=== PATIENT | female | born 1980 | race Hispanic/Latino ===

== ENCOUNTER 2024-01-26 10:07 | Emergency (ER) | payer MEDICARE ==
[~2024-01-26] VITALS: Ht 152.4 cm; Wt 68.0 kg
[2024-01-26 10:11] VITALS: O2SAT 100
[2024-01-26 10:45] LABS: BILIRUBIN,URINE NEGATIVE (NEGATIVE); GLUCOSE, URINE (UA) NEGATIVE (NEGATIVE); KETONES,URINE 5 mg/dL (NEGATIVE); LEUKOCYTE ESTERASE ,URINE 250 Leu/uL (NEGATIVE); NITRATE,URINE NEGATIVE (NEGATIVE); OCCULT BLOOD,URINE LARGE (NEGATIVE); PROTEIN,URINE 20 mg/dL (NEGATIVE); UROBILINOGEN,URINE 0.2 mg/dL (0.2-1.0)
[2024-01-26 10:46] LABS: ADD UA MICROSCOPIC YES; APPEARANCE,URINE CLOUDY (CLEAR); COLOR,URINE RED (YELLOW)
[2024-01-26 11:01] LABS: BACTERIA,URINE RARE /HPF (None Seen); MUCUS,URINE RARE LPF (None Seen); RBC,URINE TNTC /HPF (0-1); SQUAMOUS EPITHELIAL CELL,UR MOD /HPF (0-2); WBC,URINE TNTC /HPF (0-1)
[2024-01-26 11:20] LABS: BASOPHILS # (AUTO) 0.04 K/uL (0.00-0.20); BASOPHILS % (AUTO) 0.8 % (0.0-5.0); EOSINOPHILS # (AUTO) 0.04 K/uL (0.00-0.70); EOSINOPHILS % (AUTO) 0.8 % (0.0-8.0); HEMATOCRIT 38.2 % (36-48); IMMATURE GRANULOCYTE ABSOLUTE 0.01 K/uL (0-1); LYMPHOCYTES # (AUTO) 1.3 K/uL (1.0-4.8); LYMPHOCYTES % (AUTO) 24.2 % (21.0-51.0); MEAN CORPUSCULAR HEMOGLOBIN 34.1 pg (27.0-33.0); MEAN CORPUSCULAR HGB CONC 34.3 g/dL (32.0-36.0); MEAN CORPUSCULAR VOLUME 99.5 fL (79-99); MONOCYTES # (AUTO) 0.6 K/uL (0.1-1.0); MONOCYTES % (AUTO) 10.4 % (3.0-13.0); NEUTROPHILS # (AUTO) 3.4 K/uL (1.8-7.7); NEUTROPHILS % (AUTO) 63.6 % (40.0-77.0); PLATELET COUNT (AUTO) 152 K/uL (130-400); RED BLOOD CELL COUNT(AUTO) 3.84 MIL/uL (4.00-5.50); RED CELL DISTRIBUTION WIDTH 12.4 % (11.0-15.5); WHITE BLOOD COUNT (AUTO) 5.3 K/uL (4.8-10.8)
[2024-01-26 11:23] LABS: CREATININE 0.9 mg/dL (0.5-1.0); POTASSIUM 3.6 mmol/L (3.5-5.1)
[2024-01-26 11:29] LABS: ALBUMIN 3.1 g/dL (3.5-5.0); BILIRUBIN,TOTAL 0.6 mg/dL (0.2-1.0); TOTAL PROTEIN, SERUM 7.5 g/dL (6.0-8.3)
[2024-01-26] MEDS: ONDANSETRON 4MG INJ IVP ONE (13:40)
[2024-01-26] MEDS: MORPHINE 2 MG SYG IVP ONE (13:41)
[2024-01-26 15:15] VITALS: BP 91/55; PULSE 53; RESP 16
[2024-01-26] MEDS ORDERED: SULF1TAB42 PO (15:30)
[2024-01-26] MEDS ORDERED: ONDA22I PO (15:31)
[2024-01-26] MEDS: CEFTRIAXONE 1G VIAL IVPB ONE (15:44)
== END 2024-01-26 16:14 | disposition home or self-care (01) ==
LOC: EDH 10:07
DX: N39.0 Urinary tract infection, site not specified (principal)
CPT/HCPCS: 99285; 74176; 96365; 96375; 80053; 85025; 87088; 81001; 81025; 36415; 93005; J2270; J0696; J2405

== ENCOUNTER 2025-04-23 20:15 | Emergency (ER) | payer MEDICARE ==
[~2025-04-23] VITALS: Ht 160 cm; Wt 68.0 kg
[~2025-04-23 20:15] MED LIST: ONDA22I PO; SULF1TAB42 PO
--- NOTE | 2025-04-23 20:23 | ERN ---
ED Note History of Present Illness Stated Complaint: HEADACHE, DIZZINESS Chief Complaint: Headache Time Seen by MD: 20:20 Dictation: PATIENT IS A 44-YEAR-OLD FEMALE COMING IN WITH VIA EMS WITH COMPLAINTS OF HAVING A FRONTAL HEADACHE ONSET 1 HOUR PRIOR TO ARRIVAL. NO FEVER NO CHILLS NO NAUSEA VOMITING. SHE STATES SHE IS MILDLY DIZZY. SHE DOES HAVE DOWN SYNDROME HOWEVER IS PROVIDING AND APPROPRIATE HISTORY FOR HEADACHE. NIH IS 0. SHE CONFIRMS THAT NOTHING HAS BEEN GIVEN TO HER PRIOR TO ARRIVAL FOR PAIN, EMS STATED THE SAME. PATIENT DOES HAVE FAMILY IN ROUTE. Allergies: Coded Allergies: No Known Drug Allergies (Unverified Allergy, Unknown, 01/26/24) Home Meds Active Scripts Ondansetron HCl (Zofran) 4 Mg/2 Ml Inj, 4 MG PO BID for 7 Days, #14 TAB Prov:DUNG NAIDU 01/26/24 Sulfamethoxazole/Trimethoprim (Bactrim Ds Tablet) 800 Mg-160 Mg Tablet, 1 TAB PO BID for 7 Days, #14 TAB 0 Refills Prov:DUNG NAIDU 01/26/24 Past Medical History Past Medical History: Other Additional Past Medical Hx: DOWN SYNDROME Surgical History: Unknown RN Note Reviewed/Agreed w/PFSH: Yes Review of System Dictation CONSTITUTIONAL: NEGATIVE EXCEPT FOR HPI HEAD/FACE: NEGATIVE EXCEPT FOR HPI EENT: NEGATIVE EXCEPT FOR HPI RESPIRATORY: NEGATIVE EXCEPT FOR HPI GASTROINTESTINAL/ABDOMINAL: NEGATIVE EXCEPT FOR HPI GENITOURINARY: NEGATIVE EXCEPT FOR HPI MUSCULOSKELETAL: NEGATIVE EXCEPT FOR HPI INTEGUMENTARY: NEGATIVE EXCEPT FOR HPI NEUROLOGICAL/PSYCH: NEGATIVE EXCEPT FOR HPI GENERALIZED HEADACHE HEMATOLOGIC/LYMPHATIC: NEGATIVE EXCEPT FOR HPI ALL SYSTEMS NEGATIVE, EXCEPT NOTED ABOVE. 13 POINT REVIEW OF SYSTEMS ASSESSED AND ALL NEGATIVE EXCEPT FOR ABOVE. Initial Vital Sign VS Vital Signs Date Time Temp Pulse Resp B/P (MAP) Pulse Ox O2 Delivery O2 Flow Rate FiO2 04/23/25 20:15 98.2 61 16 123/74 98 Room Air* 0 21 Physical Exam Dictation VITAL SIGNS REVIEWED GENERAL APPEARANCE: ALERT, ORIENTED X 3, MILD ACUTE DISTRESS, WELL DEVELOPED, NOURISHED. HEAD AND FACE: NON-TRAUMATIC. NO SINUS TENDERNESS EYES: PERRL, PINK CONJUNCTIVAS, EYELID NO TRAUMA, ANTERIOR CHAMBER WITH ARCUS SENILIS. EARS: PINNAS INTACT AND NO SIGNS OF TRAUMA OR ERYTHEMA EAR CANALS CLEAR AND NO DISCHARGE TM NO ERYTHEMA NOSE: NO DISCHARGE, NO BLEEDING. OROPHARYNX: MOUTH NORMAL, TONGUE PINK, PHARYNX CLEAR,NO ERYTHEMA, TONSILS NO EXUDATES, NO ABSCESSES NOTED, MUCOUS MEMBRANE MOIST NECK: SUPPLE, NON-TENDER, NO THYROMEGALY, NO MASSES, NO JVD, NO BRUITS BREAST:DEFERRED CHEST:NO TENDERNESS, NO CREPITUS, NO PARADOXICAL MOVEMENT, NO RETRACTIONS LUNGS:CLEAR, WELL-VENTILATED, SYMMETRIC, NO RALES, NO WHEEZING, NO RHONCHI, NO STRIDOR, GOOD BREATH SOUNDS BILATERALLY HEART: REGULAR RATE, REGULAR RHYTHM, NO MURMUR, NO GALLOPS VASCULAR: NO PERIPHERAL EDEMA, ABDOMEN: SOFT, POSITIVE BOWEL SOUNDS, NONDISTENDED, NO GUARDING, NONTENDER, NO REBOUND, NO MASSES NO HEPATOMEGALY, NO SPLENOMEGALY, NO SWIFT'S SIGN, NO HERNIAS. RECTAL: DEFERRED GENITAL: DEFERRED NEUROLOGICAL: NORMAL SPEECH, MOTOR FUNCTION INTACT, SENSORY FUNCTION INTACT MUSCULOSKELETAL: NECK NONTENDER, FULL RANGE OF MOTION, BACK NONTENDER, FULL RANGE OF MOTION, EXTREMITIES: NONTENDER, FULL RANGE OF MOTION SKIN: COLOR PINK, DRY, NO TURGOR, NO RASH, NO LACERATIONS, NO ABRASIONS, NO CONTUSIONS. LYMPHATIC: DEFERRED Results (Laboratory/Radiology) Laboratory/Radiology Laboratory Tests Test 04/23/25 20:34 White Blood Count 5.2 K/uL (4.8-10.8) Red Blood Count 3.94 MIL/uL (4.00-5.50) L Hemoglobin 13.4 g/dL (12.0-16.0) Hematocrit 38.8 % (36-48) Mean Corpuscular Volume 98.5 fL (79-99) Mean Corpuscular Hemoglobin 34.0 pg (27.0-33.0) H Mean Corpuscular Hemoglobin Concent 34.5 g/dL (32.0-36.0) Red Cell Distribution Width 12.8 % (11.0-15.5) Platelet Count 173 K/uL (130-400) Mean Platelet Volume 12.0 fL (7.5-10.5) H Immature Granulocyte % (Auto) 0.2 % (0-1) Neutrophils (%) (Auto) 47.5 % (40.0-77.0) Lymphocytes (%) (Auto) 38.0 % (21.0-51.0) Monocytes (%) (Auto) 11.1 % (3.0-13.0) Eosinophils (%) (Auto) 2.1 % (0.0-8.0) Basophils (%) (Auto) 1.1 % (0.0-5.0) Neutrophils # (Auto) 2.5 K/uL (1.8-7.7) Lymphocytes # (Auto) 2.0 K/uL (1.0-4.8) Monocytes # (Auto) 0.6 K/uL (0.1-1.0) Eosinophils # (Auto) 0.11 K/uL (0.00-0.70) Basophils # (Auto) 0.06 K/uL (0.00-0.20) Absolute Immature Granulocyte (auto 0.01 K/uL (0-1) Nucleated Red Blood Cells 0.0 % (0.0-0.19) Sodium Level 138 mmol/L (136-145) Potassium Level 3.4 mmol/L (3.5-5.1) L Chloride Level 103 mmol/L (101-111) Carbon Dioxide Level 28 mmol/L (21-32) Blood Urea Nitrogen 6 mg/dL (7-18) L Creatinine 0.9 mg/dL (0.5-1.0) Glomerular Filtration Rate Calc 81 mL/min (>90) Random Glucose 95 mg/dL (70-105) Total Calcium 8.4 mg/dL (8.5-10.1) L Labs Reviewed?: Yes ED Course ED Course Orders Procedure Category Date Status Time Cbc With Differential LAB 04/23/25 Complete 20:22 Basic Metabolic Panel LAB 04/23/25 Complete 20:22 Acetaminophen 500mg PHA 04/23/25 Complete Tab (Tylenol 500mg T 20:30 Potassium Bicarb/Cit PHA 04/23/25 In Process Ac 25meq (K-Lyte Ta 21:30 Current Medications Medications (Trade) Dose Ordered Sig/Reji Route PRN Reason Start Time Stop Time Status Last Admin Dose Admin Acetaminophen (TYLenol 500MG TAB) 1,000 mg ONCE ONCE PO 04/23/25 20:30 04/23/25 20:31 DC 04/23/25 20:40 Potassium Bicarbonate (K-Lyte Tablet Eff 25 Meq Tablet.eff) 25 meq ONCE ONCE PO 04/23/25 21:30 04/23/25 21:31 Vital Signs Date Time Temp Pulse Resp B/P (MAP) Pulse Ox O2 Delivery O2 Flow Rate FiO2 04/23/25 20:15 98.2 61 16 123/74 98 Room Air 0 04/23/25 20:15 98.2 61 16 123/74 98 Room Air* 0 2114/PATIENT STATES PAIN MARKEDLY IMPROVED AFTER TYLENOL. DISCHARGED HOME AFTER REPLACING POTASSIUM SISTER AT BEDSIDE AND AWARE OF FINDINGS AND AGREES WITH DISCHARGE PATIENT REMAINS NEUROLOGICALLY INTACT AT BASELINE PER HER SISTER. Medical Decision Making MDM MEDICAL DISCHARGE MAKING BASED ON CBC CHEMISTRY AND TREATMENT FOR AN ACUTE HEADACHE. PATIENT GIVEN TYLENOL FOR [id number] PAIN CBC DEMONSTRATES M NO ACUTE FINDINGS BNP DEMONSTRATES MILD DEHYDRATION AND HYPOKALEMIA POTASSIUM REPLACE DISCHARGED HOME WITH HER SISTER DX & DISP Disposition: Discharge Departure Impression: Primary Impression: Acute headache Additional Impressions: Hypokalemia, Mild dehydration Condition: Stable Additional Instructions: FOLLOW-UP WITH PRIMARY CARE PROVIDER IN 1 TO 2 DAYS. TAKE MEDICATIONS DIRECTED HERE IN THE EMERGENCY ROOM. OKAY TO CONTINUE HOME MEDICATIONS UNLESS OTHERWISE DISCUSSED DURING YOUR VISIT IN THE EMERGENCY ROOM TODAY. RETURN TO YOUR NEAREST EMERGENCY ROOM IF SYMPTOMS WORSEN OR IF THERE IS NO IMPROVEMENT. CALL 911 IF YOU NEED IMMEDIATE ASSISTANCE. TAKE TYLENOL OR MOTRIN [id number] NEEDED AND IF NO CONTRAINDICATIONS ARE PRESENT. INCREASE ORAL HYDRATION. A WOUND CULTURE OR URINE CULTURE WAS ORDERED HERE IN THE EMERGENCY ROOM DEPARTMENT PLEASE FOLLOW-UP WITH PRIMARY CARE PROVIDER AND ADVISE THEM TO GET REPEAT PORTS FROM OUR FACILITY. IF YOU HAD ANY SAVANA WRAP/SPLINTS THAT WERE APPLIED HERE, PLEASE DO NOT REMOVE THEM UNTIL YOU SEE YOUR PRIMARY CARE OR SPECIALTY. TYLENOL OR MOTRIN [id number] NEEDED FOR PAIN. INCREASE FLUID INTAKE. FOLLOW UP WITH YOUR PRIMARY CARE DOCTOR IN THE NEXT 1-2 DAYS. Referrals: СВЕТЛАНА LEDEZMA (PCP) Time of Disposition: 21:17 I have reviewed the case, and I agree with, Diagnosis and Plan KALLI WHITING NP Apr 23, 2025 20:23
[2025-04-23 20:41] LABS: IMMATURE GRANULOCYTE ABSOLUTE 0.01 K/uL (0-1); NUCLEATED RED BLOOD CELLS 0.0 % (0.0-0.19); PLATELET COUNT (AUTO) 173 K/uL (130-400); RED BLOOD CELL COUNT(AUTO) 3.94 MIL/uL (4.00-5.50); RED CELL DISTRIBUTION WIDTH 12.8 % (11.0-15.5); WHITE BLOOD COUNT (AUTO) 5.2 K/uL (4.8-10.8)
[2025-04-23 20:48] LABS: CREATININE 0.9 mg/dL (0.5-1.0); GLOMERULAR FILTR. RATE CALC 81.0 mL/min (>90); GLUCOSE,RANDOM 95.0 mg/dL (70-105); SODIUM SERUM 138.0 mmol/L (136-145); UREA NITROGEN, BLOOD 6.0 mg/dL (7-18)
[2025-04-23 21:25] VITALS: BP 120/76; PULSE 64; RESP 17; TEMP 98.4; O2SAT 99
== END 2025-04-23 21:30 | disposition home or self-care (01) ==
LOC: EDH 20:15
DX: R51.9 Headache, unspecified (principal); E87.6 Hypokalemia; E86.0 Dehydration; Z79.899 Other long term (current) drug therapy
CPT/HCPCS: 36415; 80048; 85025; 99283

== ENCOUNTER 2025-06-04 14:31 | Emergency (ER) | payer MEDICARE ==
[~2025-06-04] VITALS: Ht 160 cm; Wt 79.4 kg
[2025-06-04 15:16] LABS: IMMATURE GRANULOCYTE ABSOLUTE 0.01 K/uL (0-1); NUCLEATED RED BLOOD CELLS 0.0 % (0.0-0.19); PLATELET COUNT (AUTO) 161 K/uL (130-400); RED BLOOD CELL COUNT(AUTO) 3.84 MIL/uL (4.00-5.50); RED CELL DISTRIBUTION WIDTH 13.1 % (11.0-15.5); WHITE BLOOD COUNT (AUTO) 6.0 K/uL (4.8-10.8)
[2025-06-04 15:26] LABS: CREATININE 0.8 mg/dL (0.5-1.0); GLOMERULAR FILTR. RATE CALC 94.0 mL/min (>90); GLUCOSE,RANDOM 106.0 mg/dL (70-105); SODIUM SERUM 137.0 mmol/L (136-145); UREA NITROGEN, BLOOD 7.0 mg/dL (7-18)
[2025-06-04 15:33] LABS: CREATINE KINASE, TOTAL 43.0 U/L (21-232)
--- NOTE | 2025-06-04 15:57 | HMCIMG ---
CHEST 1VW REASON: cp COMPARISON: None. FINDINGS: Single view of the chest was obtained. Lungs are clear. Heart size is normal. There is no pulmonary vascular congestion. Mediastinum and bony thorax appear unremarkable. IMPRESSION: 1. Normal single view chest x-ray.
--- NOTE | 2025-06-04 16:03 | ERN ---
General Chief Complaint: Chest Pain Stated Complaint: CP Time Seen by MD: 14:33 Time Seen by Midlevel: 14:33 Source: patient History of Present Illness Initial Comments 44-year-old female with a past medical history of Down syndrome being brought in by provider in EMS for evaluation of right-sided chest pain that started earlier today. Patient denies any other symptoms. Denies any trauma to the area. Full dose of aspirin was administered prior to arrival. No other past history is reported Allergies: Coded Allergies: No Known Drug Allergies (Unverified Allergy, Unknown, 01/26/24) Home Meds Active Scripts Ondansetron HCl (Zofran) 4 Mg/2 Ml Inj, 4 MG PO BID for 7 Days, #14 TAB Prov:DUNG NAIDU 01/26/24 Sulfamethoxazole/Trimethoprim (Bactrim Ds Tablet) 800 Mg-160 Mg Tablet, 1 TAB PO BID for 7 Days, #14 TAB 0 Refills Prov:DNUG NAIDU 01/26/24 Past Medical History Past Medical History: Other Medical History Other: DOWN SYNDROME Past Surgical History: None ROS Dictation CONSTITUTIONAL: Negative except for HPI HEAD/FACE: Negative except for HPI EENT: Negative except for HPI RESPIRATORY: Negative except for HPI GASTROINTESTINAL/ABDOMINAL: Negative except for HPI GENITOURINARY: Negative except for HPI MUSCULOSKELETAL: Negative except for HPI INTEGUMENTARY: Negative except for HPI NEUROLOGICAL/PSYCH: Negative except for HPI HEMATOLOGIC/LYMPHATIC: Negative except for HPI All Systems Negative, Except as noted above. 13 point review of systems assessed and all negative except for above. Physical Exam Physical Exam Dictation Vital Signs reviewed General Appearance: Alert, oriented x 3, no acute distress, well developed, nourished. Head and Face: non-traumatic. Eyes: PERRL, pink conjunctivas, eyelid no trauma, anterior chamber with arcus senilis. Ears: Pinnas intact and no signs of trauma or erythema ear canals clear and no discharge TM no erythema Nose: No discharge, no bleeding. Oropharynx: Mouth normal, tongue pink, pharynx clear,no erythema, tonsils no exudates, no abscesses noted, mucous membrane moist Neck: Supple, non-tender, no thyromegaly, no masses, no JVD, no bruits Breast:Deferred Chest:No tenderness, no crepitus, no paradoxical movement, no retractions Lungs:Clear, well-ventilated, symmetric, no rales, no wheezing, no rhonchi, no stridor, good breath sounds bilaterally Heart: Regular rate, regular rhythm, no murmur, no gallops Vascular: no peripheral edema, Abdomen: Soft, positive bowel sounds, nondistended, no guarding, nontender, no rebound, no masses no hepatomegaly, no splenomegaly, no Vela's sign, no hernias. Rectal: Deferred Genital: Deferred Neurological: Normal speech, motor function intact, sensory function intact Musculoskeletal: Neck nontender, full range of motion, back nontender, full range of motion, Extremities: nontender, full range of motion Skin: Color pink, dry, no turgor, no rash, no lacerations, no abrasions, no contusions. Lymphatic: Deferred Results Laboratory and Microbiology Lab and Micro Result Laboratory Tests Test 06/04/25 15:10 White Blood Count 6.0 K/uL (4.8-10.8) Red Blood Count 3.84 MIL/uL (4.00-5.50) L Hemoglobin 13.2 g/dL (12.0-16.0) Hematocrit 38.5 % (36-48) Mean Corpuscular Volume 100.3 fL (79-99) H Mean Corpuscular Hemoglobin 34.4 pg (27.0-33.0) H Mean Corpuscular Hemoglobin Concent 34.3 g/dL (32.0-36.0) Red Cell Distribution Width 13.1 % (11.0-15.5) Platelet Count 161 K/uL (130-400) Mean Platelet Volume 11.7 fL (7.5-10.5) H Immature Granulocyte % (Auto) 0.2 % (0-1) Neutrophils (%) (Auto) 42.8 % (40.0-77.0) Lymphocytes (%) (Auto) 44.0 % (21.0-51.0) Monocytes (%) (Auto) 10.3 % (3.0-13.0) Eosinophils (%) (Auto) 1.5 % (0.0-8.0) Basophils (%) (Auto) 1.2 % (0.0-5.0) Neutrophils # (Auto) 2.6 K/uL (1.8-7.7) Lymphocytes # (Auto) 2.6 K/uL (1.0-4.8) Monocytes # (Auto) 0.6 K/uL (0.1-1.0) Eosinophils # (Auto) 0.09 K/uL (0.00-0.70) Basophils # (Auto) 0.07 K/uL (0.00-0.20) Absolute Immature Granulocyte (auto 0.01 K/uL (0-1) Nucleated Red Blood Cells 0.0 % (0.0-0.19) Sodium Level 137 mmol/L (136-145) Potassium Level 3.6 mmol/L (3.5-5.1) Chloride Level 104 mmol/L (101-111) Carbon Dioxide Level 26 mmol/L (21-32) Blood Urea Nitrogen 7 mg/dL (7-18) Creatinine 0.8 mg/dL (0.5-1.0) Glomerular Filtration Rate Calc 94 mL/min (>90) Random Glucose 106 mg/dL (70-105) H Total Calcium 8.3 mg/dL (8.5-10.1) L Magnesium Level 2.10 mg/dL (1.80-2.40) Total Creatine Kinase 43 U/L (21-232) Troponin I High Sensitivity 10 ng/L (4-50) B-Type Natriuretic Peptide 19 pg/mL (0-100) Labs Reviewed?: Yes MDM MDM: 44-year-old female with a past medical history of Down syndrome being brought in by provider in EMS for evaluation of right-sided chest pain that star lyndon earlier today. Patient denies any other symptoms. Denies any trauma to the area. Full dose of aspirin was administered prior to arrival. No other past history is reported On physical examination the patient is in no acute distress. Vital signs are stable. Physical examination is reassuring. Cardiac workup initiated. CBC and chemistries are stable. Troponin is negative. Chest x-ray is normal. Patient has a low heart score in low risk for acute coronary syndrome. We will discharged home with return precautions. Provider at bedside. Differential diagnosis: Acute coronary syndrome, anxiety, noncardiac chest pain There are no social concerns with this patient. Prescription drug management Prescriptions will include: None Medical management and examination interpretation discussions were had by me with other qualified healthcare professionals as indicated for the patient's care. ED Course Orders Procedure Category Date Status Time 12 Lead Ekg Tracing- EKG 06/04/25 Logged Technical 15:00 Cbc With Differential LAB 06/04/25 Complete 15:00 Basic Metabolic Panel LAB 06/04/25 Complete 15:00 B-Type Natriuretic LAB 06/04/25 Complete Peptide 15:00 Creatine Kinase, Total LAB 06/04/25 Complete 15:00 Magnesium LAB 06/04/25 Complete 15:00 Troponin I High LAB 06/04/25 Complete Sensitivity 15:00 Chest 1vw RAD 06/04/25 Resulted 15:00 Vital Signs Date Time Temp Pulse Resp B/P (MAP) Pulse Ox O2 Delivery O2 Flow Rate FiO2 06/04/25 14:32 98.2 64 16 118/76 98 Room Air 0 HEART Score Response (Comments) Value History: Low suspicion (0) 0 EKG: Normal 0 Age: < 45yrs (0) 0 Risk Factors: No known risk factors (0) 0 Initial Troponin: Normal limit (0) 0 HEART Score Risk: Low Risk for MACE (1-3) Total 0 DX & DISP Disposition: Discharge Departure Impression: Primary Impression: Non-cardiac chest pain Condition: Stable Additional Instructions: Your evaluation today include a blood work, EKG, and a chest x-ray. All results were normal and there were no signs of heart attack, pneumonia, blood clot, or other emergency conditions at this time. Based on your heart score and test results, you were consider low risk for serious cardiac event at this time. Rest as needed and avoid strenuous activity until cleared by your primary care doctor. Stay well hydrated and maintain a healthy diet. Follow up with your primary care doctor in two three days for repeat evaluation. Referrals: СВЕТЛАНА LEDEZMA (PCP) Time of Disposition: 16:03 I have reviewed the case, and I agree with, Diagnosis and Plan I performed the substantive portion of the visit. I have reviewed and personally made and approve the management plan that is documented in the note by myself or the MELBA. I acknowledge for responsibility for the patient's management plan. DUNG NAIDU Jun 04, 2025 16:03
[2025-06-04 17:00] VITALS: BP 123/66; PULSE 60; RESP 16; TEMP 98.2; O2SAT 98
--- NOTE | 2025-06-04 20:16 | EKG ---
[facility] Test Date: 2025-06-04 Test Time: 14:32:08 Pat Name: SANDRA WILLS Department: [facility] Room: Gender: F Director [place] Sales: [id number] : 1980 Requested By: DUNG NAIDU Order Number: [id number] Reading MD: Harshad Emanuel Measurements Intervals Severy Rate: 60 P: 44 HI: 137 QRS: 56 QRSD: 91 T: 31 QT: 434 QTc: 435 Interpretive Statements Sinus rhythm Low voltage, precordial leads Compared to ECG 01/26/2024 12:16:36 No significant changes Electronically Signed On 06-07-2025 21:29:49 CDT by Harshad Emanuel Please click the below link to view image of tracing.
== END 2025-06-04 17:31 | disposition home or self-care (01) ==
LOC: EDH 14:31
DX: R07.89 Other chest pain (principal); Q90.9 Down syndrome, unspecified
CPT/HCPCS: 36415; 71045; 80048; 82550; 83735; 83880; 84484; 85025; 93005; 99285

== ENCOUNTER 2025-06-19 15:42 | Emergency (ER) | payer MEDICARE ==
[~2025-06-19] VITALS: Ht 162.6 cm; Wt 72.1 kg
--- NOTE | 2025-06-19 15:57 | NUR ---
PENDING TEST RESULTS FOR CT EXAM.
[2025-06-19 16:03] LABS: IMMATURE GRANULOCYTE ABSOLUTE 0.01 K/uL (0-1); NUCLEATED RED BLOOD CELLS 0.0 % (0.0-0.19); PLATELET COUNT (AUTO) 199 K/uL (130-400); RED BLOOD CELL COUNT(AUTO) 3.85 MIL/uL (4.00-5.50); RED CELL DISTRIBUTION WIDTH 13.2 % (11.0-15.5); WHITE BLOOD COUNT (AUTO) 7.3 K/uL (4.8-10.8)
[2025-06-19 16:19] LABS: CREATININE 0.8 mg/dL (0.5-1.0); GLOMERULAR FILTR. RATE CALC 94.0 mL/min (>90); GLUCOSE,RANDOM 93.0 mg/dL (70-105); SODIUM SERUM 139.0 mmol/L (136-145); UREA NITROGEN, BLOOD 7.0 mg/dL (7-18)
[2025-06-19 16:24] LABS: ASPARTATE AMINOTRANSFERASE 41.0 U/L (10-37); TOTAL PROTEIN, SERUM 7.2 g/dL (6.0-8.3)
--- NOTE | 2025-06-19 16:25 | NUR ---
TRANSPORTED TO CT BY BANK [facility]NER.
--- NOTE | 2025-06-19 16:43 | HMCIMG ---
EXAM: CT Abdomen and Pelvis Without IV contrast CLINICAL HISTORY: diffuse abdominal pain, bilateral flank pain TECHNIQUE: Axial computed tomography images of the abdomen and pelvis without intravenous contrast. CONTRAST: No IV contrast. COMPARISON: None provided. FINDINGS: LUNG BASES: The lung bases appear clear. No pleural effusions are seen. LIVER: Unremarkable. GALLBLADDER AND BILE DUCTS: The gallbladder appears within normal limits. No radioopaque gallstones are seen. No biliary ductal dilatation is evident. PANCREAS: Unremarkable. SPLEEN: Unremarkable. ADRENAL GLANDS: Unremarkable. KIDNEYS, URETERS, AND BLADDER: Small bilateral obstructing renal collecting system stones, measuring 2 to 3 mm. No ureteral stones. No hydronephrosis. STOMACH AND BOWEL: No bowel obstruction or inflammation. APPENDIX: Normal appendix. PERITONEUM: No free fluid. No free air. LYMPH NODES: No lymphadenopathy is evident. REPRODUCTIVE: 2 cm right adnexal cyst. Thickened endometrium in the lower uterine segment. VASCULATURE: No evidence of abdominal aortic aneurysm. BONES: No aggressive appearing osseous lesion. No acute osseous pathology evident. IMPRESSION: Small bilateral obstructing renal collecting system stones, measuring 2 to 3 mm. No ureteral stones. No hydronephrosis. No bowel obstruction or inflammation. Normal appendix. 2 cm right adnexal cyst. Thickened endometrium in the lower uterine segment. If indicated, further evaluation with ultrasound can be performed. /[place]
--- NOTE | 2025-06-19 16:45 | NUR ---
RETURNED FROM CT.
[2025-06-19] MEDS: 0.9% NACL 500ML IV.SOLN 500 ML IV ONE (17:41)
[2025-06-19] MEDS: 0.9%NACL 1000ML 1,000 ML IV SCH (18:00)
--- NOTE | 2025-06-19 18:00 | ERN ---
ED Note History of Present Illness Stated Complaint: ABDOMINAL PAIN Chief Complaint: Abdominal Pain Time Seen by MD: 15:46 Time Seen by Midlevel: 15:47 Dictation: Ms. Wills is a 44 year old female with history of Down syndrome transported via EMS to the emergency department for evaluation of flank pain. She reports fatigue, general weakness, nausea, diarrhea, headache, and bilateral flank pain onset today at 1400. There is no report of fever, chills, shortness of breath, cough, chest pain, palpitations, edema, vomiting, hematemesis, constipation, melena, hematochezia, hematuria, headache, dizziness, or focal weakness/paresth esia Allergies: Coded Allergies: No Known Drug Allergies (Unverified Allergy, Unknown, 01/26/24) Emergency Care DIGITAL CIRCUIT DESIGNER: None Home Meds Active Scripts Ondansetron HCl (Zofran) 4 Mg/2 Ml Inj, 4 MG PO BID for 7 Days, #14 TAB Prov:DUNG NAIDU 01/26/24 Sulfamethoxazole/Trimethoprim (Bactrim Ds Tablet) 800 Mg-160 Mg Tablet, 1 TAB PO BID for 7 Days, #14 TAB 0 Refills Prov:DUNG NAIDU 01/26/24 Past Medical History Past Medical History: No Pertinent History Additional Past Medical Hx: DOWNE'S SYNDROME Surgical History: None PSYCH History: no pertinent psych hx Social History: Negative History: Not Applicable RN Note Reviewed/Agreed w/PFSH: Yes Review of System Dictation REVIEW OF SYSTEMS: CONSTITUTIONAL: Patient denies fevers, chills, sweats and weight changes. Reports fatigue and general weakness. EYES: Patient denies any visual symptoms. EARS, NOSE, AND THROAT: No difficulties with hearing. No symptoms of rhinitis or sore throat. CARDIOVASCULAR: Patient denies chest pains, palpitations, orthopnea and paroxysmal nocturnal dyspnea. RESPIRATORY: No dyspnea on exertion, no wheezing or cough. GI: No nausea, vomiting, constipation, hematochezia or melena. Reports diffuse abdominal pain and diarrhea. : No urinary hesitancy or dribbling. No nocturia or urinary frequency. No abnormal urethral discharge. Denies hematuria. Reports bilateral flank pain. MUSCULOSKELETAL: No myalgias or arthralgias. NEUROLOGIC: No chronic headaches, no seizures. Patient denies numbness, tingling or weakness. Reports headache. PSYCHIATRIC: Patient denies problems with mood disturbance. No problems with anxiety. ENDOCRINE: No excessive urination or excessive thirst. DERMATOLOGIC: Patient denies any rashes or skin changes. Initial Vital Sign VS Vital Signs Date Time Temp Pulse Resp B/P (MAP) Pulse Ox O2 Delivery O2 Flow Rate FiO2 06/19/25 15:44 98.2 67 18 108/73 99 Room Air 06/19/25 15:54 0 21 Physical Exam Dictation Vital signs: Reviewed. Afebrile Constitutional: Uncomfortable restless Head/Face: Normocephalic, atraumatic. Eyes: Periorbital areas with no swelling, redness, or edema. Lids and lashes are normal. Conjunctival injection is absent. Sclera anicteric. Pupils equal, round, reactive to light. ENT: Pinnas intact and no signs of trauma or erythema. Ear canals clear and no discharge. TMs no erythema. No nasal discharge or bleeding noted. Oropharynx with no exudate, redness, swelling, masses, exudates, or evidence of obstruction. Uvula midline. Mucous membranes moist. Neck: Trachea midline, no masses palpated, and no cervical lymphadenopathy. No swelling. Supple, full range of motion. Chest/Axilla: No tenderness, no crepitus, no paradoxical movement, no retractions. Cardiovascular: Regular rate, regular rhythm, no murmur, no gallops. Symmetric pulses. No peripheral edema. monitoring coordinator reflects a sinus rhythm. Normotensive; 108/73 Respiratory: Respirations even and unlabored. Lung sounds clear; no wheezes, rales or rhonchi. Room air SpO2 99%. Gastrointestinal: Inspection is normal. No distention is appreciated. Bowel sounds are normal. No mass or organomegaly . There is no tenderness. No rebound. No rigidity. No voluntary or involuntary guarding. No Vela's sign. : Has not yet voided. No suprapubic tenderness. Positive tenderness bilateral flanks. Neurological: Normal speech, gross motor function intact, gross sensory function intact. No focal weakness/Paresthesia. Musculoskeletal/Extremities: All extremities have full range of motion, no pain or tenderness on palpation. Symmetric pulses. Integumentary: Intact. Skin is normal color, warm and dry. Cap refill less than 3 seconds. Results (Laboratory/Radiology) Laboratory/Radiology Laboratory Tests Test 06/19/25 15:53 06/19/25 18:38 White Blood Count 7.3 K/uL (4.8-10.8) Red Blood Count 3.85 MIL/uL (4.00-5.50) L Hemoglobin 13.2 g/dL (12.0-16.0) Hematocrit 38.0 % (36-48) Mean Corpuscular Volume 98.7 fL (79-99) Mean Corpuscular Hemoglobin 34.3 pg (27.0-33.0) H Mean Corpuscular Hemoglobin Concent 34.7 g/dL (32.0-36.0) Red Cell Distribution Width 13.2 % (11.0-15.5) Platelet Count 199 K/uL (130-400) Mean Platelet Volume 11.2 fL (7.5-10.5) H Immature Granulocyte % (Auto) 0.1 % (0-1) Neutrophils (%) (Auto) 57.8 % (40.0-77.0) Lymphocytes (%) (Auto) 31.0 % (21.0-51.0) Monocytes (%) (Auto) 9.4 % (3.0-13.0) Eosinophils (%) (Auto) 0.7 % (0.0-8.0) Basophils (%) (Auto) 1.0 % (0.0-5.0) Neutrophils # (Auto) 4.2 K/uL (1.8-7.7) Lymphocytes # (Auto) 2.3 K/uL (1.0-4.8) Monocytes # (Auto) 0.7 K/uL (0.1-1.0) Eosinophils # (Auto) 0.05 K/uL (0.00-0.70) Basophils # (Auto) 0.07 K/uL (0.00-0.20) Absolute Immature Granulocyte (auto 0.01 K/uL (0-1) Nucleated Red Blood Cells 0.0 % (0.0-0.19) Sodium Level 139 mmol/L (136-145) Potassium Level 3.6 mmol/L (3.5-5.1) Chloride Level 105 mmol/L (101-111) Carbon Dioxide Level 23 mmol/L (21-32) Blood Urea Nitrogen 7 mg/dL (7-18) Creatinine 0.8 mg/dL (0.5-1.0) Glomerular Filtration Rate Calc 94 mL/min (>90) Random Glucose 93 mg/dL (70-105) Lactic Acid Level 1.2 mmol/L (0.8-2.5) Total Calcium 8.3 mg/dL (8.5-10.1) L Total Bilirubin 0.4 mg/dL (0.2-1.0) Direct Bilirubin 0.1 mg/dL (0.0-0.3) Aspartate Amino Transf (AST/SGOT) 41 U/L (10-37) H Alanine Aminotransferase (ALT/SGPT) 47 U/L (12-78) Alkaline Phosphatase 93 U/L (50-136) Total Protein 7.2 g/dL (6.0-8.3) Albumin 3.0 g/dL (3.5-5.0) L Serum Test, Qualitative NEGATIVE (NEGATIVE) Urine Color YELLOW (YELLOW) Urine Appearance CLEAR (CLEAR) Urine pH 5.0 (5.0-8.0) Urine Specific [place] 1.022 (1.001-1.031) Urine Protein NEGATIVE mg/dL (NEGATIVE) Urine Glucose (UA) NEGATIVE mg/dL (NEGATIVE) Urine Ketones 5 mg/dL (NEGATIVE) H Urine Occult Blood NEGATIVE (NEGATIVE) Urine Nitrate NEGATIVE (NEGATIVE) Urine Bilirubin NEGATIVE mg/dL (NEGATIVE) Urine Urobilinogen 0.2 mg/dL (0.2-1.0) Urine Leukocyte Esterase NEGATIVE Tu/uL Labs Reviewed?: Yes CT Scan Comment: PATIENT: SANDRA WILLS MR#: [id number] : 1980 SEX: F AGE: 44 LOCATION: [facility] ORDER [id number] STATUS: [facility] REPORT#: [id number] SERVICE [id number] REASON: diffuse abdominal pain, bilateral flank pain ORDERING PHYSICIAN: ENRRIQUE SOLORZANO NP PROCEDURE: ABD PEL WO - CT ABDOMEN/PELVIS W/O CONTRAST EXAM: CT Abdomen and Pelvis Without IV contrast CLINICAL HISTORY: diffuse abdominal pain, bilateral flank pain TECHNIQUE: Axial computed tomography images of the abdomen and pelvis without intravenous contrast. CONTRAST: No IV contrast. COMPARISON: None provided. FINDINGS: LUNG BASES: The lung bases appear clear. No pleural effusions are seen. LIVER: Unremarkable. GALLBLADDER AND BILE DUCTS: The gallbladder appears within normal limits. No radioopaque gallstones are seen. No biliary ductal dilatation is evident. PANCREAS: Unremarkable. SPLEEN: Unremarkable. ADRENAL GLANDS: Unremarkable. KIDNEYS, URETERS, AND BLADDER: Small bilateral obstructing renal collecting system stones, measuring 2 to 3 mm. No ureteral stones. No hydronephrosis. STOMACH AND BOWEL: No bowel obstruction or inflammation. APPENDIX: Normal appendix. PERITONEUM: No free fluid. No free air. LYMPH NODES: No lymphadenopathy is evident. REPRODUCTIVE: 2 cm right adnexal cyst. Thickened endometrium in the lower uterine segment. VASCULATURE: No evidence of abdominal aortic aneurysm. BONES: No aggressive appearing osseous lesion. No acute osseous pathology evident. IMPRESSION: Small bilateral obstructing renal collecting system stones, measuring 2 to 3 mm. No ureteral stones. No hydronephrosis. No bowel obstruction or inflammation. Normal appendix. 2 cm right adnexal cyst. Thickened endometrium in the lower uterine segment. If indicated, further evaluation with ultrasound can be performed. /[place] DICTATED BY: JENNIFER MCGEE MD DATE: 06/19/251741 ELECTRONICALLY SIGNED BY: JENNIFER MCGEE MD DATE: 06/19/251741 ED Course ED Course Orders Procedure Category Date Status Time Urinalysis Profile LAB 06/19/25 Complete 15:48 Cbc With Differential LAB 06/19/25 Complete 15:48 Basic Metabolic Panel LAB 06/19/25 Complete 15:48 Hepatic Function Panel LAB 06/19/25 Complete 15:48 Ct Abdomen/Pelvis W/O CT 06/19/25 Resulted Contrast 15:48 0.9% Nacl 500ml PHA 06/19/25 Complete Iv.Soln (Ns 500ml 16:00 Ondansetron 4mg Inj PHA 06/19/25 Complete (Zofran 4mg Inj) 16:00 Hydromorphone 0.5mg PHA 06/19/25 Complete Syg (Dilaudid 0.5mg 16:00 Testing, LAB 06/19/25 Complete Serum Hcg 15:48 Lactic Acid LAB 06/19/25 Complete 15:48 0.9%Nacl 1000ml (Ns PHA 06/19/25 In Process 1000ml) 18:00 Tamsulosin Hcl PHA 06/19/25 Logged (Flomax) 19:00 Ketorolac PHA 06/19/25 Logged Tromethamine 15mg/Ml 19:00 Hydromorphone 0.5mg PHA 06/19/25 Logged Syg (Dilaudid 0.5mg 19:00 Ondansetron 4mg Inj PHA 06/19/25 Logged (Zofran 4mg Inj) 19:00 0.9% Nacl 500ml PHA 06/19/25 Logged Iv.Soln (Ns 500ml 19:00 Current Medications Medications (Trade) Dose Ordered Sig/Reji Route PRN Reason Start Time Stop Time Status Last Admin Dose Admin Hydromorphone HCl (DiLAUDid 0.5MG INJ) 0.5 mg ONCE ONCE IVP 06/19/25 16:00 06/19/25 16:01 DC 06/19/25 17:41 Hydromorphone HCl (DiLAUDid 0.5MG INJ) 0.5 mg ONCE ONCE IVP 06/19/25 19:00 06/19/25 19:01 UNV Ketorolac Tromethamine (toRADol) 15 mg ONCE ONCE IV 06/19/25 19:00 06/19/25 19:01 UNV Ondansetron HCl (zoFRAN 4MG INJ) 4 mg ONCE ONCE IVP 06/19/25 16:00 06/19/25 16:01 DC 06/19/25 17:42 Ondansetron HCl (zoFRAN 4MG INJ) 4 mg ONCE ONCE IVP 06/19/25 19:00 06/19/25 19:01 UNV Sodium Chloride 500 ml @ 0 mls/hr ONCE ONCE IV 06/19/25 16:00 06/19/25 16:01 DC 06/19/25 17:41 Sodium Chloride 500 ml @ 0 mls/hr ONCE ONCE IV 06/19/25 19:00 06/19/25 19:01 UNV Sodium Chloride 1,000 ml @ 0 mls/hr ONCE IV 06/19/25 18:00 06/20/25 17:59 Tamsulosin HCl (FloMAX) 0.4 mg ONCE ONCE PO 06/19/25 19:00 06/19/25 19:01 UNV Vital Signs Date Time Temp Pulse Resp B/P (MAP) Pulse Ox O2 Delivery O2 Flow Rate FiO2 06/19/25 18:00 97.2 71 20 110/58 99 Room Air* 0 21 06/19/25 15:54 98.2 70 14 108/73 99 Room Air* 0 21 06/19/25 15:44 98.2 67 18 108/73 99 Room Air Vital signs remained stable; afebrile and normotensive with room air SpO2 99%. Laboratory findings as noted below. There is no elevation of WBCs. H&H are stable. Ca 8.3, AST 41, and albumin three. HCG was negative. Noncontrast CT scan of the abdomen and pelvis revealed small bilateral obstructing renal collecting system stones measuring 2-3 mm. No ureteral stones. No hydronephrosis. There is no bowel obstruction or inflammation. Normal appen katarina. Incidental finding of a 2 cm right adnexal cyst as well as thickened endometrium in the lower uterine segment. ED she received doses Zofran, Dilaudid, Toradol, Flomax, and NS 1000 mL IV as bolus. These findings were discussed with patient and family. She will follow up with her PCP and [facility]. She may be referred to urologist. Medical Decision Making MDM MDM: Differential diagnosis: UTI, pyelonephritis, kidney stone, appendicitis Rationale: Tests considered and ordered secondary to shared decision making include: Lab, UA, CT Previous outside records reviewed: Old ER visits. Risk of complication and/or morbidity or mortality of patient management: None Medications-Per medication reconciliation Need for hospitalization: Patient does not meet criteria for hospitalization. Need for emergency major/minor surgery: No There are no social concerns with this patient. Prescription drug management: Flomax, ibuprofen, Zofran Prescriptions will include symptomatic care Patient's prior external medical records from other ER visits were reviewed by me as indicated. Prior testing and results from previous visits were reviewed. Prior tests were taken into account with medical decision making and resource utilization, independent historian/historians were used to obtain complete medical history. I independently interpreted the test that were performed, results were reviewed by me and considered findings on radiology if ordered. Medical management and examination interpretation discussions were had by me with other qualified healthcare professionals as indicated for the patient's care. DX & DISP Disposition: Discharge Departure Impression: Primary Impression: Kidney stone Additional Impressions: Mild dehydration, Nausea & vomiting Condition: Stable Scripts Ondansetron (Ondansetron Odt) 4 Mg Tab.rapdis 4 MG PO Q6HPRN PRN for nausea, #15 TAB 0 Refills Prov: ENRRIQUE SOLORZANO SULEMAN 06/19/25 Ibuprofen (Ibuprofen) 600 Mg Tablet 1 TAB PO TID for pain for 10 Days, #30 TAB 0 Refills with food Prov: ENRRIQUE SOLORZANO SULEMAN 06/19/25 Tamsulosin HCl (Flomax) 0.4 Mg Cap.er.24h 0.4 MG PO DAILY, #10 CAPSULE.DR 0 Refills Prov: ENRRIQUE SOLORZANO SULEMAN 06/19/25 Additional Instructions: Re-evaluated today for bilateral flank and abdominal pain your CT scan showed small bilateral kidney stones (2-3 mm) there was no evidence of infection, appendicitis, or bowel obstruction. There was an incidental finding of a thickened endometrium which she should be followed up with with your primary care provider or [facility]. Your pain improved in the emergency room and you are being discharged to home with ibuprofen as needed for pain, Zofran as needed for nausea., and Flomax daily to help pass stones. You will need to drink plenty of fluids to help flush the stones. Avoid sodas and colon which can increase stone wrist. Rest as needed, but daily activity is okay as tolerated. You may use a urine strainer if able to catch stones. Schedule a visit with your primary care provider early next week. Follow up with your [facility] for the uterine findings. You may be referred to urologist. Return to the emergency department if you develop: Fever, chills, or worsening pain. Nausea or vomiting troponin fluid intake. Difficulty urinating or blood clots in the urine. Signs of dehydration (dry mouth, dizziness, or very little urine). Referrals: СВЕТЛАНА LEDEZMA (PCP) Time of Disposition: 19:13 ENRRIQUE SOLORZANO NP Jun 19, 2025 17:59
[2025-06-19 18:49] LABS: APPEARANCE,URINE CLEAR (CLEAR); GLUCOSE, URINE (UA) NEGATIVE (NEGATIVE); LEUKOCYTE ESTERASE ,URINE NEGATIVE Leu/uL (NEGATIVE); NITRATE,URINE NEGATIVE (NEGATIVE); OCCULT BLOOD,URINE NEGATIVE (NEGATIVE)
[2025-06-19 18:55] LABS: ADD UA MICROSCOPIC NO
[2025-06-19] MEDS ORDERED: TAMS-55 PO (19:07)
[2025-06-19] MEDS ORDERED: ONDA-243 PO (19:07)
[2025-06-19] MEDS ORDERED: IBUP-1492 PO (19:07)
--- NOTE | 2025-06-19 19:20 | NUR ---
PT CARE ASSUMED AT THIS TIME
[2025-06-19] MEDS: 0.9% NACL 500ML IV.SOLN 500 ML IV SCH (19:41)
[2025-06-19 19:52] VITALS: BP 110/55; PULSE 69; RESP 15; TEMP 98.2; O2SAT 100
--- NOTE | 2025-06-19 20:03 | NUR ---
STRAINER GIVEN TO PT DIRECTED BY SULEMAN OSUNA
== END 2025-06-19 20:05 | disposition home or self-care (01) ==
LOC: EDH 15:42
DX: N20.0 Calculus of kidney (principal); E86.0 Dehydration; R11.2 Nausea with vomiting, unspecified
CPT/HCPCS: 99285; 74176; 96374; 96375; 80076; 80048; 84703; 85025; 83605; 81003; 36415; 96376; J7040; J2405 ×2; J1171

== ENCOUNTER 2025-06-26 15:08 | Emergency (ER) | payer MEDICARE ==
[~2025-06-26] VITALS: Ht 152.4 cm; Wt 69.9 kg
[~2025-06-26 15:08] MED LIST changes: +IBUP-1492 PO; +ONDA-243 PO; +TAMS-55 PO
--- NOTE | 2025-06-26 15:17 | ERN ---
ED Note History of Present Illness Stated Complaint: ABDOMINAL PAIN Chief Complaint: Abdominal Pain Time Seen by MD: 15:10 Dictation: PATIENT IS A 44-YEAR-OLD FEMALE HERE WITH HISTORY OF DOWN SYNDROME AND COMPLAINING OF EPIGASTRIC PAIN WITH NAUSEA VOMITING ONSET WAS YESTERDAY. NO FEVER NO CHILLS NO CHEST PAIN NO BACK PAIN NO SOB. [place] [facility] [place] [facility] [place] Allergies: Coded Allergies: No Known Drug Allergies (Unverified Allergy, Unknown, 01/26/24) Home Meds Active Scripts Ondansetron (Ondansetron Odt) 4 Mg Tab.rapdis, 4 MG PO Q6HPRN PRN for nausea, #15 TAB 0 Refills Prov:ENRRIQUE SOLORZANO [facility] 06/19/25 Ibuprofen (Ibuprofen) 600 Mg Tablet, 1 TAB PO TID for pain for 10 Days, #30 TAB 0 Refills with food Prov:ENRRIQUE SOLORZANO [facility] 06/19/25 Tamsulosin HCl (Flomax) 0.4 Mg Cap.er.24h, 0.4 MG PO DAILY, #10 CAPSULE.DR 0 Refills Prov:ENRRIQUE SOLORZANO [facility] 06/19/25 Ondansetron HCl (Zofran) 4 Mg/2 Ml Inj, 4 MG PO BID for 7 Days, #14 TAB Prov:DUNG NAIDU [facility] 01/26/24 Sulfamethoxazole/Trimethoprim (Bactrim Ds Tablet) 800 Mg-160 Mg Tablet, 1 TAB PO BID for 7 Days, #14 TAB 0 Refills Prov:DUNG NAIDU 01/26/24 Past Medical History Past Medical History: No Pertinent History Additional Past Medical Hx: DOWNE'S SYNDROME Surgical History: None Social History: Negative History: Not Applicable RN Note Reviewed/Agreed w/PFSH: Yes Review of System Dictation NORMAL ROS CONSTITUTIONAL: NEGATIVE EXCEPT FOR HPI HEAD/FACE: NEGATIVE EXCEPT FOR HPI EENT: NEGATIVE EXCEPT FOR HPI RESPIRATORY: NEGATIVE EXCEPT FOR HPI GASTROINTESTINAL/ABDOMINAL: NEGATIVE EXCEPT FOR HPI EPIGASTRIC PAIN WITH NAUSEA VOMITING GENITOURINARY: NEGATIVE EXCEPT FOR HPI MUSCULOSKELETAL: NEGATIVE EXCEPT FOR HPI INTEGUMENTARY: NEGATIVE EXCEPT FOR HPI NEUROLOGICAL/PSYCH: NEGATIVE EXCEPT FOR HPI HEMATOLOGIC/LYMPHATIC: NEGATIVE EXCEPT FOR HPI ALL SYSTEMS NEGATIVE, EXCEPT NOTED ABOVE. 13 POINT REVIEW OF SYSTEMS ASSESSED AND ALL NEGATIVE EXCEPT FOR ABOVE. Initial Vital Sign VS Vital Signs Date Time Temp Pulse Resp B/P (MAP) Pulse Ox O2 Delivery O2 Flow Rate FiO2 06/26/25 15:10 97.5 66 20 98/72 98 Room Air 06/26/25 15:24 0 21 Physical Exam Dictation VITAL SIGNS REVIEWED GENERAL APPEARANCE: ALERT, ORIENTED X 3, MODERATE ACUTE DISTRESS, WELL DEVELOPED, NOURISHED. HEAD AND FACE: NON-TRAUMATIC. EYES: PERRL, PINK CONJUNCTIVAS, EYELID NO TRAUMA, ANTERIOR CHAMBER WITH ARCUS SENILIS. EARS: PINNAS INTACT AND NO SIGNS OF TRAUMA OR ERYTHEMA EAR CANALS CLEAR AND NO DISCHARGE TM NO ERYTHEMA NOSE: NO DISCHARGE, NO BLEEDING. OROPHARYNX: MOUTH NORMAL, TONGUE PINK, PHARYNX CLEAR,NO ERYTHEMA, TONSILS NO EXUDATES, NO ABSCESSES NOTED, MUCOUS MEMBRANE MOIST NECK: SUPPLE, NON-TENDER, NO THYROMEGALY, NO MASSES, NO JVD, NO BRUITS BREAST:DEFERRED CHEST:NO TENDERNESS, NO CREPITUS, NO PARADOXICAL MOVEMENT, NO RETRACTIONS LUNGS:CLEAR, WELL-VENTILATED, SYMMETRIC, NO RALES, NO WHEEZING, NO RHONCHI, NO STRIDOR, GOOD BREATH SOUNDS BILATERALLY HEART: REGULAR RATE, REGULAR RHYTHM, NO MURMUR, NO GALLOPS VASCULAR: NO PERIPHERAL EDEMA, ABDOMEN: SOFT, POSITIVE BOWEL SOUNDS, NONDISTENDED, NO GUARDING, MODERATE EPIGASTRIC PAIN WITH PALPATION. NEGATIVE SWIFT'S SIGN NEGATIVE MCBURNEY'S POINT PAIN RECTAL: DEFERRED GENITAL: DEFERRED NEUROLOGICAL: NORMAL SPEECH, MOTOR FUNCTION INTACT, SENSORY FUNCTION INTACT MUSCULOSKELETAL: NECK NONTENDER, FULL RANGE OF MOTION, BACK NONTENDER, FULL RANGE OF MOTION, EXTREMITIES: NONTENDER, FULL RANGE OF MOTION SKIN: COLOR PINK, DRY, NO TURGOR, NO RASH, NO LACERATIONS, NO ABRASIONS, NO C ONTUSIONS. LYMPHATIC: DEFERRED Results (Laboratory/Radiology) Laboratory/Radiology Laboratory Tests Test 06/26/25 15:24 06/26/25 16:47 White Blood Count 5.6 K/uL (4.8-10.8) Red Blood Count 3.89 MIL/uL (4.00-5.50) L Hemoglobin 13.4 g/dL (12.0-16.0) Hematocrit 39.5 % (36-48) Mean Corpuscular Volume 101.5 fL (79-99) H Mean Corpuscular Hemoglobin 34.4 pg (27.0-33.0) H Mean Corpuscular Hemoglobin Concent 33.9 g/dL (32.0-36.0) Red Cell Distribution Width 13.2 % (11.0-15.5) Platelet Count 141 K/uL (130-400) Mean Platelet Volume 13.5 fL (7.5-10.5) H Immature Granulocyte % (Auto) 0.4 % (0-1) Neutrophils (%) (Auto) 46.6 % (40.0-77.0) Lymphocytes (%) (Auto) 39.7 % (21.0-51.0) Monocytes (%) (Auto) 10.4 % (3.0-13.0) Eosinophils (%) (Auto) 2.0 % (0.0-8.0) Basophils (%) (Auto) 0.9 % (0.0-5.0) Neutrophils # (Auto) 2.6 K/uL (1.8-7.7) Lymphocytes # (Auto) 2.2 K/uL (1.0-4.8) Monocytes # (Auto) 0.6 K/uL (0.1-1.0) Eosinophils # (Auto) 0.11 K/uL (0.00-0.70) Basophils # (Auto) 0.05 K/uL (0.00-0.20) Absolute Immature Granulocyte (auto 0.02 K/uL (0-1) Nucleated Red Blood Cells 0.0 % (0.0-0.19) Sodium Level 138 mmol/L (136-145) Potassium Level 3.8 mmol/L (3.5-5.1) Chloride Level 104 mmol/L (101-111) Carbon Dioxide Level 27 mmol/L (21-32) Blood Urea Nitrogen 8 mg/dL (7-18) Creatinine 0.9 mg/dL (0.5-1.0) Glomerular Filtration Rate Calc 81 mL/min (>90) Random Glucose 100 mg/dL (70-105) Total Calcium 8.1 mg/dL (8.5-10.1) L Troponin I High Sensitivity 8 ng/L (4-50) Lipase 37 U/L (16-77) Urine Color COLORLESS (YELLOW) Urine Appearance CLEAR (CLEAR) Urine pH 5.5 (5.0-8.0) Urine Specific [place] 1.002 (1.001-1.031) Urine Protein NEGATIVE mg/dL (NEGATIVE) Urine Glucose (UA) NEGATIVE mg/dL (NEGATIVE) Urine Ketones NEGATIVE mg/dL (NEGATIVE) Urine Occult Blood NEGATIVE (NEGATIVE) Urine Nitrate NEGATIVE (NEGATIVE) Urine Bilirubin NEGATIVE mg/dL (NEGATIVE) Urine Urobilinogen 0.2 mg/dL (0.2-1.0) Urine Leukocyte Esterase NEGATIVE Tu/uL Urine HCG, Qualitative NEGATIVE (NEGATIVE) Labs Reviewed?: Yes EKG: (+) NSR EKG Comment: EKG NORMAL SINUS RHYTHM/HEART RATE 62/AXIS NORMAL/NO ECTOPY ED Course ED Course Orders Procedure Category Date Status Time Cbc With Differential LAB 06/26/25 Complete 15:12 Troponin I High LAB 06/26/25 Complete Sensitivity 15:12 ,Urine Test LAB 06/26/25 Complete 15:12 Urinalysis Profile LAB 06/26/25 Complete 15:12 0.9%Nacl 1000ml (Ns PHA 06/26/25 Complete 1000ml) 15:30 Famotidine 20mg Vial PHA 06/26/25 Complete (Pepcid 20mg Vial) 15:30 Lipase LAB 06/26/25 Complete 15:12 Basic Metabolic Panel LAB 06/26/25 Complete 15:12 12 Lead Ekg Tracing- EKG 06/26/25 Logged Technical 16:41 Lidocaine Hcl 2% PHA 06/26/25 Complete Viscous (Lidocaine Hcl 17:00 Mag/Alum/Simeth 30ml PHA 06/26/25 Complete (Maalox Plus 30ml) 17:00 Famotidine 20mg Tab PHA 06/26/25 Complete (Pepcid 20mg Tab) 17:00 Dicyclomine Hcl PHA 06/26/25 Complete (Bentyl 10mg/5ml 17:00 Current Medications Medications (Trade) Dose Ordered Sig/Reji Route PRN Reason Start Time Stop Time Status Last Admin Dose Admin Al Hydroxide/Mg Hydroxide (MAALox PLUS 30ML) 30 ml ONCE ONCE PO 06/26/25 17:00 06/26/25 17:01 DC Dicyclomine HCl (Bentyl 10mg/5ml Syrup) 10 mg ONCE ONCE PO 06/26/25 17:00 06/26/25 17:01 DC Famotidine (Pepcid 20mg Vial) 20 mg ONCE ONCE IV 06/26/25 15:30 06/26/25 16:56 DC 06/26/25 16:40 Famotidine (Pepcid 20mg Tab) 20 mg ONCE ONCE PO 06/26/25 17:00 06/26/25 17:01 DC Lidocaine HCl (Lidocaine HCl 2% Viscous) 10 ml ONCE ONCE PO 06/26/25 17:00 06/26/25 17:01 DC Sodium Chloride 1,000 ml @ 0 mls/hr ONCE ONCE IV 06/26/25 15:30 06/26/25 16:56 DC 06/26/25 16:40 Vital Signs Date Time Temp Pulse Resp B/P (MAP) Pulse Ox O2 Delivery O2 Flow Rate FiO2 06/26/25 15:24 97.5 66 20 98/72 Room Air* 0 21 06/26/25 15:10 97.5 66 20 98/72 98 Room Air 1715/PATIENT STATES PAIN MARKEDLY IMPROVED AFTER GI COCKTAIL AND PEPCID. DISCHARGED HOME WITH A ACUTE GASTRITIS AND WE WILL BE TREATED FOR THAT. BLAND DIET EXPLAINED TO PATIENT WITH WATER FOR FLUIDS ONLY Medical Decision Making MDM MDM: DIFFERENTIAL DIAGNOSIS: ACS/AMI/ELECTROLYTE IMBALANCE/DEHYDRATION/PANCREATITIS/GASTRITIS/CHOLELITHIASIS/ RATIONALE: TESTS CONSIDERED AND ORDERED SECONDARY TO SHARED DECISION MAKING INCLUDE: LABS/EKG PREVIOUS OUTSIDE RECORDS REVIEWED: OLD ER VISITS. RISK OF COMPLICATION AND/OR MORBIDITY OR MORTALITY OF PATIENT MANAGEMENT: NONE MEDICATIONS-PER MEDICATION RECONCILIATION NEED FOR HOSPITALIZATION: PATIENT DOES NOT MEET CRITERIA FOR HOSPITALIZATION. NONE NEED FOR EMERGENCY MAJOR/MINOR SURGERY: NO THERE ARE NO SOCIAL CONCERNS WITH THIS PATIENT. PRESCRIPTION DRUG MANAGEMENT OMEPRAZOLE/CARAFATE PRESCRIPTIONS WILL INCLUDE SYMPTOMATIC CARE PATIENT'S PRIOR EXTERNAL MEDICAL RECORDS FROM OTHER ER VISITS WERE REVIEWED BY ME INDICATED. PRIOR TESTING AND RESULTS FROM PREVIOUS VISITS WERE REVIEWED. PRIOR TESTS WERE TAKEN INTO ACCOUNT WITH MEDICAL DECISION MAKING AND RESOURCE UTILIZATION, INDEPENDENT HISTORIAN/HISTORIANS WERE USED TO OBTAIN COMPLETE MEDICAL HISTORY. I INDEPENDENTLY INTERPRETED THE TEST THAT WERE PERFORMED, RESULTS WERE REVIEWED BY ME AND CONSIDERED FINDINGS ON RADIOLOGY IF ORDERED. MEDICAL MANAGEMENT AND EXAMINATION INTERPRETATION DISCUSSIONS WERE HAD BY ME WITH OTHER QUALIFIED HEALTHCARE PROFESSIONALS INDICATED FOR THE PATIENT'S CARE. DX & DISP Disposition: Discharge Departure Impression: Primary Impression: Acute gastritis Additional Impression: Hypocalcemia Condition: Stable Scripts Sucralfate (Carafate) 1 Gram Tablet 1 GM PO ACHS for 10 Days, #40 TAB Prov: KALLI WHITING FOUNDER PRESIDENT AND CEO 06/26/25 Omeprazole (Omeprazole) 40 Mg Capsule.dr 1 CAP PO DAILY for 30 Days, #30 CAP 0 Refills Prov: KALLI WHITING 06/26/25 Additional Instructions: FOLLOW-UP WITH PRIMARY CARE PROVIDER IN 1 TO 2 DAYS. TAKE MEDICATIONS DIRECTED HERE IN THE EMERGENCY ROOM. OKAY TO CONTINUE HOME MEDICATIONS UNLESS OTHERWISE DISCUSSED DURING YOUR VISIT IN THE EMERGENCY ROOM TODAY. RETURN TO YOUR NEAREST EMERGENCY ROOM IF SYMPTOMS WORSEN OR IF THERE IS NO IMPROVEMENT. CALL 911 IF YOU NEED IMMEDIATE ASSISTANCE. TAKE TYLENOL OR MOTRIN [id number] NEEDED AND IF NO CONTRAINDICATIONS ARE PRESENT. INCREASE ORAL HYDRATION. A WOUND CULTURE OR URINE CULTURE WAS ORDERED HERE IN THE EMERGENCY ROOM DEPARTMENT PLEASE FOLLOW-UP WITH PRIMARY CARE PROVIDER AND ADVISE THEM TO GET REPEAT PORTS FROM OUR FACILITY. IF YOU HAD ANY SAVANA WRAP/SPLINTS THAT WERE APPLIED HERE, PLEASE DO NOT REMOVE THEM UNTIL YOU SEE YOUR PRIMARY CARE OR SPECIALTY. TAKE CARAFATE DIRECTED. TAKE OMEPRAZOLE DIRECTED DAILY UNTIL GONE. FOLLOW A BLAND DIET WITH WATER FOR FLUIDS ONLY. NO SPICY FOODS, NO SODA POP, NO ICE TEA, NO ALCOHOL, NO CITRUS FRUIT JUICE UNTIL CLEARED BY YOUR PRIMARY CARE DOCTOR IN THE NEXT 1-2 DAYS. Referrals: СВЕТЛАНА LEDEZMA (PCP) Time of Disposition: 17:18 I have reviewed the case, and I agree with, Diagnosis and Plan KALLI WHITING Jun 26, 2025 15:17
[2025-06-26 15:32] LABS: IMMATURE GRANULOCYTE ABSOLUTE 0.02 K/uL (0-1); NUCLEATED RED BLOOD CELLS 0.0 % (0.0-0.19); PLATELET COUNT (AUTO) 141 K/uL (130-400); RED BLOOD CELL COUNT(AUTO) 3.89 MIL/uL (4.00-5.50); RED CELL DISTRIBUTION WIDTH 13.2 % (11.0-15.5); WHITE BLOOD COUNT (AUTO) 5.6 K/uL (4.8-10.8)
[2025-06-26 15:46] LABS: CREATININE 0.9 mg/dL (0.5-1.0); GLOMERULAR FILTR. RATE CALC 81.0 mL/min (>90); GLUCOSE,RANDOM 100.0 mg/dL (70-105); SODIUM SERUM 138.0 mmol/L (136-145); UREA NITROGEN, BLOOD 8.0 mg/dL (7-18)
[2025-06-26] MEDS: FAMOTIDINE 20MG VIAL IV ONE (16:40)
[2025-06-26] MEDS: 0.9%NACL 1000ML 1,000 ML IV ONE (16:40)
[2025-06-26 16:59] LABS: APPEARANCE,URINE CLEAR (CLEAR); GLUCOSE, URINE (UA) NEGATIVE (NEGATIVE); LEUKOCYTE ESTERASE ,URINE NEGATIVE Leu/uL (NEGATIVE); NITRATE,URINE NEGATIVE (NEGATIVE); OCCULT BLOOD,URINE NEGATIVE (NEGATIVE)
[2025-06-26 17:00] LABS: ADD UA MICROSCOPIC NO
[2025-06-26 17:01] LABS: HCG,QUALITATIVE URINE NEGATIVE (NEGATIVE)
[2025-06-26] MEDS: DICYCLOMINE HCL 10 MG/5 ML ML PO ONE (17:17)
[2025-06-26] MEDS: MAG/ALUM/SIMETH 30 ML UDCUP PO ONE (17:17)
[2025-06-26] MEDS: LIDOCAINE HCL 2% VISCOUS 15 ML UDCUP PO ONE (17:18)
[2025-06-26] MEDS: FAMOTIDINE 20MG TAB PO ONE (17:18)
[2025-06-26] MEDS ORDERED: SUCR1TAB28 PO (17:19)
[2025-06-26] MEDS ORDERED: OMEP40CA21 PO (17:19)
[2025-06-26 18:26] VITALS: BP 140/80; PULSE 69; RESP 20; TEMP 98; O2SAT 98
--- NOTE | 2025-06-26 22:04 | EKG ---
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
== END 2025-06-26 18:43 | disposition home or self-care (01) ==
LOC: EDH 15:08
DX: K29.00 Acute gastritis without bleeding (principal); E83.51 Hypocalcemia; R11.2 Nausea with vomiting, unspecified; Z79.1 Long term (current) use of non-steroidal anti-inflammatories (NSAID)
CPT/HCPCS: 99284; 96374; 96361; 84484; 80048; 83690; 85025; 81003; 81025; 36415; 93005; J1308; J7030

== ENCOUNTER 2025-07-01 12:41 | Emergency (ER) | payer MEDICARE ==
[~2025-07-01] VITALS: Ht 152.4 cm; Wt 70.3 kg
[~2025-07-01 12:41] MED LIST changes: +OMEP40CA21 PO; +SUCR1TAB28 PO
[2025-07-01 13:20] LABS: IMMATURE GRANULOCYTE ABSOLUTE 0.03 K/uL (0-1); NUCLEATED RED BLOOD CELLS 0.0 % (0.0-0.19); PLATELET COUNT (AUTO) 135 K/uL (130-400); RED BLOOD CELL COUNT(AUTO) 3.88 MIL/uL (4.00-5.50); RED CELL DISTRIBUTION WIDTH 13.3 % (11.0-15.5); WHITE BLOOD COUNT (AUTO) 6.2 K/uL (4.8-10.8)
--- NOTE | 2025-07-01 13:21 | ERN ---
ED Note History of Present Illness Stated Complaint: CHEST PAIN Chief Complaint: Chest Pain Time Seen by MD: 12:43 Time Seen by Midlevel: 12:45 Dictation: 44-year-old female history of Down syndrome, gastritis and kidney stone coming in with complaints of left-sided chest pain and left shoulder pain. Patient states it started a couple of days ago. Denies having any fever, nausea vomiting or diarrhea. Denies any back pain, dysuria or hematuria. Currently on Flomax and omeprazole. Was recently seen here and diagnosed with a kidney stones and gastritis. Allergies: Coded Allergies: No Known Drug Allergies (Unverified Allergy, Unknown, 01/26/24) Home Meds Active Scripts Sucralfate (Carafate) 1 Gram Tablet, 1 GM PO ACHS for 10 Days, #40 TAB Prov:KALLI WHITING WIRE M[employer] FILTER FABRICATOR 06/26/25 Omeprazole (Omeprazole) 40 Mg Capsule.dr, 1 CAP PO DAILY for 30 Days, #30 CAP 0 Refills Prov:KALLI WHITING [employer] M[employer] FILTER FABRICATOR 06/26/25 Ondansetron (Ondansetron Odt) 4 Mg Tab.rapdis, 4 MG PO Q6HPRN PRN for nausea, #15 TAB 0 Refills Prov:RASHADENRRIQUE Head WIRE MESH FILTER FABRICATOR 06/19/25 Ibuprofen (Ibuprofen) 600 Mg Tablet, 1 TAB PO TID for pain for 10 Days, #30 TAB 0 Refills with food Prov:ENRRIQUE SOLORZANO [employer]RIC[employer] 06/19/25 Tamsulosin HCl (Flomax) 0.4 Mg Cap.er.24h, 0.4 MG PO DAILY, #10 CAPSULE.DR 0 Refills Prov:ENRRIQUE SOLORZANO [employer]RICATOR 06/19/25 Ondansetron HCl (Zofran) 4 Mg/2 Ml Inj, 4 MG PO BID for 7 Days, #14 TAB Prov:DUNG NAIDU [facility] 01/26/24 Sulfamethoxazole/Trimethoprim (Bactrim Ds Tablet) 800 Mg-160 Mg Tablet, 1 TAB PO BID for 7 Days, #14 TAB 0 Refills Prov:DUNG NAIDU [facility] 01/26/24 Past Medical History Past Medical History: Other Additional Past Medical Hx: DOWN SYNDROME Surgical History: Unknown Social History: Negative History: Not Applicable Review of System Dictation Constitutional: Negative for fever,chills, and weight loss Eyes: Negative for injury, pain,redness, and discharge ENT: Negative for injury,pain or swelling Cardiovascular: Positive for chest pain, no palpitations, and no edema Respiratory: Negative for shortness of breath, cough, and wheezing, Abdomen/GI: Negative for abdominal pain, nausea, vomiting, diarrhea, and constipation Back: Negative for injury and pain : Negative for injury, bleeding and discharge MS/Extremity: Negative for injury and deformity, shoulder pain Skin: Negative for rash, and discoloration Neuro: Negative for headache, weakness, numbness, tingling, and seizure Psych: Negative for suicide ideation, homicidal ideation, and hallucinations Review of Systems: was completed Initial Vital Sign VS Vital Signs Date Time Temp Pulse Resp B/P (MAP) Pulse Ox O2 Delivery O2 Flow Rate FiO2 07/01/25 13:00 98.2 63 20 118/75 97 Room Air 0 07/01/25 13:28 21 Physical Exam Dictation General: awake, alert, NAD Head/Face: Normocephalic, atraumatic Eyes: PERRL, EOMI, vision at baseline ENT: oral cavity clear, TMs clear, no signs of infection Neck: Trachea midline, supple, no nuchal rigidity Cardiovascular: RRR, normal S1/S2, No MRGs, no JVD, reproducible chest pain on vomiting in the left chest wall along with the shoulder, patient denies any trauma Respiratory: CTAB, no respiratory distress, No rales or wheezes Abdomen: Soft, non-tender, non-distended, normal bowel sounds, no guarding or rebound. Skin: Warm, dry, normal turgor, no rash MS/Extremity: Pulses equal, no cyanosis, neurovascular intact, FROM Neuro: COAx4, GCS 15, strength 5/5, CN 2-12 intact, normal cerebellar exam, normal gait, Psych: Normal behavior, mood, and affect normal Results (Laboratory/Radiology) Laboratory/Radiology Laboratory Tests Test 07/01/25 13:05 07/01/25 13:40 White Blood Count 6.2 K/uL (4.8-10.8) Red Blood Count 3.88 MIL/uL (4.00-5.50) L Hemoglobin 13.1 g/dL (12.0-16.0) Hematocrit 39.7 % (36-48) Mean Corpuscular Volume 102.3 fL (79-99) H Mean Corpuscular Hemoglobin 33.8 pg (27.0-33.0) H Mean Corpuscular Hemoglobin Concent 33.0 g/dL (32.0-36.0) Red Cell Distribution Width 13.3 % (11.0-15.5) Platelet Count 135 K/uL (130-400) Mean Platelet Volume 12.4 fL (7.5-10.5) H Immature Granulocyte % (Auto) 0.5 % (0-1) Neutrophils (%) (Auto) 50.7 % (40.0-77.0) Lymphocytes (%) (Auto) 33.8 % (21.0-51.0) Monocytes (%) (Auto) 13.2 % (3.0-13.0) H Eosinophils (%) (Auto) 0.8 % (0.0-8.0) Basophils (%) (Auto) 1.0 % (0.0-5.0) Neutrophils # (Auto) 3.2 K/uL (1.8-7.7) Lymphocytes # (Auto) 2.1 K/uL (1.0-4.8) Monocytes # (Auto) 0.8 K/uL (0.1-1.0) Eosinophils # (Auto) 0.05 K/uL (0.00-0.70) Basophils # (Auto) 0.06 K/uL (0.00-0.20) Absolute Immature Granulocyte (auto 0.03 K/uL (0-1) Nucleated Red Blood Cells 0.0 % (0.0-0.19) Sodium Level 140 mmol/L (136-145) Potassium Level 3.9 mmol/L (3.5-5.1) Chloride Level 106 mmol/L (101-111) Carbon Dioxide Level 27 mmol/L (21-32) Blood Urea Nitrogen 7 mg/dL (7-18) Creatinine 0.8 mg/dL (0.5-1.0) Glomerular Filtration Rate Calc 94 mL/min (>90) Random Glucose 89 mg/dL (70-105) Total Calcium 8.1 mg/dL (8.5-10.1) L Troponin I High Sensitivity 8 ng/L (4-50) Urine Color COLORLESS (YELLOW) Urine Appearance CLEAR (CLEAR) Urine pH 5.5 (5.0-8.0) Urine Specific [place] 1.003 (1.001-1.031) Urine Protein NEGATIVE mg/dL (NEGATIVE) Urine Glucose (UA) NEGATIVE mg/dL (NEGATIVE) Urine Ketones NEGATIVE mg/dL (NEGATIVE) Urine Occult Blood NEGATIVE (NEGATIVE) Urine Nitrate NEGATIVE (NEGATIVE) Urine Bilirubin NEGATIVE mg/dL (NEGATIVE) Urine Urobilinogen 0.2 mg/dL (0.2-1.0) Urine Leukocyte Esterase NEGATIVE Tu/uL Labs Reviewed?: Yes EKG Comment: Did not and told 57. Sinus rhythm at a rate of 60. Low voltage. No STEMI interpreted by ER MD X-RAY Comment: [facility] [address] [place] [address] IMAGING REPORT Signed PATIENT: SANDRA WILLS MR#: [id number] : 1980 SEX: F AGE: 44 LOCATION: [facility] ORDER 1251 STATUS: REG ER [facility] REPORT#: [id number] SERVICE 125 REASON: cp ORDERING PHYSICIAN: IRENE CASEY PROCEDURE: SHOL 2V LT - SHOULDER COMP 2+VWS LT EXAM: CR Left Shoulder, 2 View. CLINICAL HISTORY: CP. COMPARISON: None provided. FINDINGS: BONES: No acute fracture or aggressive appearing osseous lesion identified. JOINTS: No dislocation. The glenohumeral and acromioclavicular joint spaces are preserved. SOFT TISSUES: The soft tissues appear unremarkable. No calcification or swelling seen. IMPRESSION: 1. No acute findings. /[place] DICTATED BY: ROLDAN RUIZ MD DATE: 07/01/251611 ELECTRONICALLY SIGNED BY: ROLDAN RUIZ MD DATE: 07/01/251611 [facility] [address] [place] [address] IMAGING REPORT Signed PATIENT: SANDRA WILLS MR#: [id number] : 1980 SEX: F AGE: 44 LOCATION: [facility] ORDER 1251 STATUS: REG ER REPORT#: [id number] SERVICE 1250 REASON: cp ORDERING PHYSICIAN: IRENE CASEY PROCEDURE: CXR1VW - CHEST 1VW EXAM: CR Chest, 1 View. CLINICAL HISTORY: CP. COMPARISON: Prior radiograph dated 09-Jun-2025. FINDINGS: LUNGS: The lungs show no infiltrate, consolidation, or other acute finding. PLEURAL SPACES: No pleural effusion or pneumothorax. MEDIASTINUM: Cardiac size and mediastinal contours within normal limits. BONES: No aggressive appearing osseous lesion seen. IMPRESSION: 1. No acute cardiopulmonary findings. /[place] DICTATED BY: ROLDAN RUIZ MD DATE: 07/01/251611 ELECTRONICALLY SIGNED BY: ROLDAN RUIZ MD DATE: 07/01/25 161 ED Course ED Course Orders Procedure Category Date Status Time Cbc With Differential LAB 07/01/25 Complete 12:50 Basic Metabolic Panel LAB 07/01/25 Complete 12:50 Urinalysis Profile LAB 07/01/25 Complete 12:50 Troponin I High LAB 07/01/25 Complete Sensitivity 12:50 Chest 1vw RAD 07/01/25 Resulted 12:50 Shoulder Comp 2+Vws Lt RAD 07/01/25 Resulted 12:50 12 Lead Ekg Tracing- EKG 07/01/25 Complete Technical 12:50 Zofran 4mg Ivp X1 Dose PHA 07/01/25 Transmitted 15:30 Gi Cocktail(Viscous PHA 07/01/25 Transmitted Lido 2%) 15:30 Gi Cocktail (Maalox PHA 07/01/25 Transmitted 30ml) 15:30 Gi Cocktail(Bentyl PHA 07/01/25 Transmitted 10mg) 15:30 Vital Signs Date Time Temp Pulse Resp B/P (MAP) Pulse Ox O2 Delivery O2 Flow Rate FiO2 07/01/25 15:08 98.2 69 12 104/71 99 Room Air* 0 21 07/01/25 13:28 98.2 67 13 122/60 98 Room Air* 0 21 07/01/25 13:00 98.2 63 20 118/75 97 Room Air 0 HEART Score Response (Comments) Value History: Low suspicion (0) 0 EKG: Normal 0 Age: < 45yrs (0) 0 Risk Factors: 1-2 risk factors (+1) 1 Initial Troponin: Normal limit (0) 0 Total 1 Medical Decision Making MDM MDM: 44-year-old female history of Down syndrome, gastritis and kidney stone coming in with complaints of left-sided chest pain and left shoulder pain. Patient states it started a couple of days ago. Denies having any fever, nausea vomiting or diarrhea. Denies any back pain, dysuria or hematuria. Currently on Flomax and omeprazole. Was recently seen here and diagnosed with a kidney stones and gastritis. Blood work is unremarkable. Troponin is negative. Heart score is one, low risk. Chest x-ray shows no acute findings and shoulder x-ray shows no acute finding. On reassessment patient is complaining of epigastric pain. Educated patient that she has been diagnosed with gastritis in the past, states that she eats a lot of pizza muscle dog, [place] fries and nuggets. Discussed with the patient that she needs to change her eating habits and continue taking the omeprazole that was already prescribed to her. Educated she has a needs to follow up with a GI outpatient and return to the hospital for any worsening symptoms. Patient verbalized understanding, answered all questions. Differential diagnosis: Shoulder contusion, humeral head fracture, chest wall pain, ACS, gastritis Rationale: Tests considered and ordered secondary to shared decision making include: Previous outside records reviewed: Old ER visits. Risk of complication and/or morbidity or mortality of patient management: None Medications-Per medication reconciliation Need for hospitalization: Patient does not meet criteria for hospitalization. Need for emergency major/minor surgery: No There are no social concerns with this patient. Prescription drug management Prescriptions will include symptomatic care Patient's prior external medical records from other ER visits were reviewed by me as indicated. Prior testing and results from previous visits were reviewed. Prior tests were taken into account with medical decision making and resource utilization, independent historian/historians were used to obtain complete medical history. I independently interpreted the test that were performed, results were reviewed by me and considered findings on radiology if ordered. Medical management and examination interpretation discussions were had by me with other qualified healthcare professionals as indicated for the patient's care. DX & DISP Disposition: Discharge Departure Impression: Primary Impression: Acute gastritis Additional Impression: Non-cardiac chest pain Condition: Stable Additional Instructions: Stop eating fried foods or spicy foods. Follow up with PCP and or with a manganese breaker. Return to the hospital for any worsening symptoms. Continue taking your omeprazole and has a your tamsulosin Referrals: SHIKHA GALVAN MD (PCP) Time of Disposition: 15:26 I have reviewed the case, and I agree with, Diagnosis and Plan IRENE CASEY Jul 01, 2025 13:21
[2025-07-01 13:27] LABS: CREATININE 0.8 mg/dL (0.5-1.0); GLOMERULAR FILTR. RATE CALC 94.0 mL/min (>90); GLUCOSE,RANDOM 89.0 mg/dL (70-105); SODIUM SERUM 140.0 mmol/L (136-145); UREA NITROGEN, BLOOD 7.0 mg/dL (7-18)
[2025-07-01 13:58] LABS: APPEARANCE,URINE CLEAR (CLEAR); GLUCOSE, URINE (UA) NEGATIVE (NEGATIVE); LEUKOCYTE ESTERASE ,URINE NEGATIVE Leu/uL (NEGATIVE); NITRATE,URINE NEGATIVE (NEGATIVE); OCCULT BLOOD,URINE NEGATIVE (NEGATIVE)
[2025-07-01 13:59] LABS: ADD UA MICROSCOPIC NO
--- NOTE | 2025-07-01 14:37 | EKG ---
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
[2025-07-01 15:08] VITALS: BP 104/71; PULSE 69; RESP 12; TEMP 98.2; O2SAT 99
--- NOTE | 2025-07-01 15:12 | HMCIMG ---
EXAM: CR Left Shoulder, 2 View. CLINICAL HISTORY: CP. COMPARISON: None provided. FINDINGS: BONES: No acute fracture or aggressive appearing osseous lesion identified. JOINTS: No dislocation. The glenohumeral and acromioclavicular joint spaces are preserved. SOFT TISSUES: The soft tissues appear unremarkable. No calcification or swelling seen. IMPRESSION: 1. No acute findings. /[place]
--- NOTE | 2025-07-01 15:13 | HMCIMG ---
EXAM: CR Chest, 1 View. CLINICAL HISTORY: CP. COMPARISON: Prior radiograph dated 09-Jun-2025. FINDINGS: LUNGS: The lungs show no infiltrate, consolidation, or other acute finding. PLEURAL SPACES: No pleural effusion or pneumothorax. MEDIASTINUM: Cardiac size and mediastinal contours within normal limits. BONES: No aggressive appearing osseous lesion seen. IMPRESSION: 1. No acute cardiopulmonary findings. /[place]
[2025-07-01] MEDS: LIDOCAINE HCL 2% VISCOUS 15 ML UDCUP PO ONE (15:35)
[2025-07-01] MEDS: MAG/ALUM/SIMETH 30 ML UDCUP PO ONE (15:35)
[2025-07-01] MEDS: DICYCLOMINE HCL 10 MG/5 ML ML PO ONE (15:35)
== END 2025-07-01 16:02 | disposition home or self-care (01) ==
LOC: EDH 12:41
DX: K29.00 Acute gastritis without bleeding (principal); R07.89 Other chest pain; M25.512 Pain in left shoulder; Q90.9 Down syndrome, unspecified; Z79.899 Other long term (current) drug therapy; Z79.1 Long term (current) use of non-steroidal anti-inflammatories (NSAID)
CPT/HCPCS: 99285; 96374; 71045; 84484; 80048; 85025; 81003; 36415; 73030; 93005; J2405

== ENCOUNTER 2025-07-10 13:02 | Emergency (ER) | payer MEDICARE ==
[~2025-07-10] VITALS: Ht 147.3 cm; Wt 56.7 kg
--- NOTE | 2025-07-10 13:15 | ERN ---
ED Note History of Present Illness Stated Complaint: BACK STRAIN Chief Complaint: Back Pain-No Injury Time Seen by MD: 13:10 Dictation: PATIENT IS A 44-YEAR-OLD FEMALE HERE WITH RIGHT FLANK PAIN AND UPPER THORACIC PAIN SHE HAS HAD FOR 3-4 DAYS. NO FEVER NO CHILLS NO NAUSEA VOMITING. NO COUGH SHE STATES SHE DOES HAVE A HISTORY Allergies: Coded Allergies: No Known Drug Allergies (Unverified Allergy, Unknown, 01/26/24) Home Meds Active Scripts Sucralfate (Carafate) 1 Gram Tablet, 1 GM PO ACHS for 10 Days, #40 TAB Prov:JOHANNEKALLI Chip PC TECHNICIAN 06/26/25 Omeprazole (Omeprazole) 40 Mg Capsule.dr, 1 CAP PO DAILY for 30 Days, #30 CAP 0 Refills Prov:JOHANNEKALLI PC TECHNICIAN 06/26/25 Ondansetron (Ondansetron Odt) 4 Mg Tab.rapdis, 4 MG PO Q6HPRN PRN for nausea, #15 TAB 0 Refills Prov:VESTAENRRIQUE Ferrera [facility] TECHNICIAN 06/19/25 Ibuprofen (Ibuprofen) 600 Mg Tablet, 1 TAB PO TID for pain for 10 Days, #30 TAB 0 Refills with food Prov:ENRRIQUE SOLORZANO [facility] TECHNICIAN 06/19/25 Tamsulosin HCl (Flomax) 0.4 Mg Cap.er.24h, 0.4 MG PO DAILY, #10 CAPSULE.DR 0 Refills Prov:ENRRIQUE SOLORZANO [facility] TECHNICIAN 06/19/25 Ondansetron HCl (Zofran) 4 Mg/2 Ml Inj, 4 MG PO BID for 7 Days, #14 TAB Prov:DUNG NAIDU 01/26/24 Sulfamethoxazole/Trimethoprim (Bactrim Ds Tablet) 800 Mg-160 Mg Tablet, 1 TAB PO BID for 7 Days, #14 TAB 0 Refills Prov:DUNG NAIDU 01/26/24 Past Medical History Past Medical History: Other Additional Past Medical Hx: DOWN SYNDROME, RENAL CALCULI Surgical History: Unknown Social History: Negative History: Not Applicable RN Note Reviewed/Agreed w/PFSH: Yes Review of System Dictation CONSTITUTIONAL: Negative except for HPI HEAD/FACE: Negative except for HPI EENT: Negative except for HPI RESPIRATORY: Negative except for HPI GASTROINTESTINAL/ABDOMINAL: Negative except for HPI right upper and lower thoracic/lumbar flank pain GENITOURINARY: Negative except for HPI MUSCULOSKELETAL: Negative except for HPI INTEGUMENTARY: Negative except for HPI NEUROLOGICAL/PSYCH: Negative except for HPI HEMATOLOGIC/LYMPHATIC: Negative except for HPI All Systems Negative, Except as noted above. 13 point review of systems assessed and all negative except for above. Initial Vital Sign VS Vital Signs Date Time Temp Pulse Resp B/P (MAP) Pulse Ox O2 Delivery O2 Flow Rate FiO2 07/10/25 13:07 98.4 59 17 115/76 97 Room Air 0 07/10/25 13:21 21 Physical Exam Dictation Vital Signs reviewed General Appearance: Alert, oriented x 3, mild o acute distress, well developed, nourished. Head and Face: non-traumatic. Eyes: PERRL, pink conjunctivas, eyelid no trauma, anterior chamber with arcus senilis. Ears: Pinnas intact and no signs of trauma or erythema ear canals clear and no discharge TM no erythema Nose: No discharge, no bleeding. Oropharynx: Mouth normal, tongue pink, pharynx clear,no erythema, tonsils no exudates, no abscesses noted, mucous membrane moist Neck: Supple, non-tender, no thyromegaly, no masses, no JVD, no bruits Breast:Deferred Chest:No tenderness, no crepitus, no paradoxical movement, no retractions Lungs:Clear, well-ventilated, symmetric, no rales, no wheezing, no rhonchi, no stridor, good breath sounds bilaterally Heart: Regular rate, regular rhythm, no murmur, no gallops Vascular: no peripheral edema, Abdomen: Soft, positive bowel sounds, nondistended, no guarding, nontender, no rebound, no masses no hepatomegaly, no splenomegaly, no Vela's sign, no hernias. Rectal: Deferred Genital: Deferred Neurological: Normal speech, motor function intact, s negative CVAT, mild right lateral thoracic tenderness. Extremities: nontender, full range of motion Skin: Color pink, dry, no turgor, no rash, no lacerations, no abrasions, no contusions. Lymphatic: Deferred Results (Laboratory/Radiology) Laboratory/Radiology Laboratory Tests Test 07/10/25 13:21 07/10/25 13:26 Urine Color COLORLESS (YELLOW) Urine Appearance CLEAR (CLEAR) Urine pH 6.5 (5.0-8.0) Urine Specific [place] 1.001 (1.001-1.031) Urine Protein NEGATIVE mg/dL (NEGATIVE) Urine Glucose (UA) NEGATIVE mg/dL (NEGATIVE) Urine Ketones NEGATIVE mg/dL (NEGATIVE) Urine Occult Blood NEGATIVE (NEGATIVE) Urine Nitrate NEGATIVE (NEGATIVE) Urine Bilirubin NEGATIVE mg/dL (NEGATIVE) Urine Urobilinogen 0.2 mg/dL (0.2-1.0) Urine Leukocyte Esterase NEGATIVE Tu/uL Urine HCG, Qualitative NEGATIVE (NEGATIVE) White Blood Count 6.9 K/uL (4.8-10.8) Red Blood Count 4.02 MIL/uL (4.00-5.50) Hemoglobin 13.6 g/dL (12.0-16.0) Hematocrit 39.9 % (36-48) Mean Corpuscular Volume 99.3 fL (79-99) H Mean Corpuscular Hemoglobin 33.8 pg (27.0-33.0) H Mean Corpuscular Hemoglobin Concent 34.1 g/dL (32.0-36.0) Red Cell Distribution Width 13.3 % (11.0-15.5) Platelet Count 201 K/uL (130-400) Mean Platelet Volume 11.7 fL (7.5-10.5) H Immature Granulocyte % (Auto) 0.3 % (0-1) Neutrophils (%) (Auto) 52.8 % (40.0-77.0) Lymphocytes (%) (Auto) 34.5 % (21.0-51.0) Monocytes (%) (Auto) 9.8 % (3.0-13.0) Eosinophils (%) (Auto) 1.6 % (0.0-8.0) Basophils (%) (Auto) 1.0 % (0.0-5.0) Neutrophils # (Auto) 3.7 K/uL (1.8-7.7) Lymphocytes # (Auto) 2.4 K/uL (1.0-4.8) Monocytes # (Auto) 0.7 K/uL (0.1-1.0) Eosinophils # (Auto) 0.11 K/uL (0.00-0.70) Basophils # (Auto) 0.07 K/uL (0.00-0.20) Absolute Immature Granulocyte (auto 0.02 K/uL (0-1) Nucleated Red Blood Cells 0.0 % (0.0-0.19) Sodium Level 139 mmol/L (136-145) Potassium Level 4.0 mmol/L (3.5-5.1) Chloride Level 104 mmol/L (101-111) Carbon Dioxide Level 28 mmol/L (21-32) Blood Urea Nitrogen 8 mg/dL (7-18) Creatinine 0.9 mg/dL (0.5-1.0) Glomerular Filtration Rate Calc 81 mL/min (>90) Random Glucose 98 mg/dL (70-105) Total Calcium 8.1 mg/dL (8.5-10.1) L 1435/thoracic x-ray demonstrates scoliosis. Labs Reviewed?: Yes ED Course ED Course Orders Procedure Category Date Status Time Cbc With Differential LAB 07/10/25 Complete 13:14 ,Urine Test LAB 07/10/25 Complete 13:14 Urinalysis Profile LAB 07/10/25 Complete 13:14 Basic Metabolic Panel LAB 07/10/25 Complete 13:14 Acetaminophen 500mg PHA 07/10/25 Complete Tab (Tylenol 500mg T 13:30 Thoracic Spine 2vws RAD 07/10/25 Taken 14:02 Current Medications Medications (Trade) Dose Ordered Sig/Reji Route PRN Reason Start Time Stop Time Status Last Admin Dose Admin Acetaminophen (TYLenol 500MG TAB) 1,000 mg ONCE ONCE PO 07/10/25 13:30 07/10/25 13:31 DC 07/10/25 13:27 Vital Signs Date Time Temp Pulse Resp B/P (MAP) Pulse Ox O2 Delivery O2 Flow Rate FiO2 07/10/25 13:21 98.4 59 17 115/76 97 Room Air* 0 21 07/10/25 13:07 98.4 59 17 115/76 97 Room Air 0 Medical Decision Making MDM 1435/medical discharge making based on basic labs urinalysis. No infection no stone no Thoracic x-ray demonstrates scoliotic lean. Discharged home with thoracic strain Given ibuprofen told to see her primary care doctor. DX & DISP Disposition: Discharge Departure Impression: Primary Impression: Acute thoracic myofascial strain Condition: Stable Scripts Ibuprofen (Ibuprofen 800 mg Tab) 800 Mg Tab 800 MG PO Q8H PRN for fever or pain, #30 TAB 0 Refills Prov: KALLI WHITING PC TECHNICIAN 10/24/25 Additional Instructions: Follow-up with primary care provider in 1 to 2 days. Take medications as directed here in the emergency room. Okay to continue home medications unless otherwise discussed during your visit in the emergency room today. Return to your nearest emergency room if symptoms worsen or if there is no improvement. Call 911 if you need immediate assistance. Take Tylenol or Motrin [id number] as needed and if no contraindications are present. Increase oral hydration. A wound culture or urine culture was ordered here in the emergency room department please follow-up with primary care provider and advise them to get repeat ports from our facility. If you had any Kike wrap/splints that were applied here, please do not remove them until you see your primary care or specialty. Take ibuprofen with food as directed for pain. Warm compresses to your back three to 4 times a day. See your primary care doctor for follow up. Referrals: SHIKHA GALVAN MD (PCP) Time of Disposition: 14:37 I have reviewed the case, and I agree with, Diagnosis and Plan KALLI WHITING PC TECHNICIAN Jul 10, 2025 13:15
--- NOTE | 2025-07-10 13:19 | NUR ---
SISTER GABRIELA [phone]
[2025-07-10 13:21] VITALS: BP 115/76; PULSE 59; RESP 17; TEMP 98.5; O2SAT 97
[2025-07-10 13:33] LABS: IMMATURE GRANULOCYTE ABSOLUTE 0.02 K/uL (0-1); NUCLEATED RED BLOOD CELLS 0.0 % (0.0-0.19); PLATELET COUNT (AUTO) 201 K/uL (130-400); RED BLOOD CELL COUNT(AUTO) 4.02 MIL/uL (4.00-5.50); RED CELL DISTRIBUTION WIDTH 13.3 % (11.0-15.5); WHITE BLOOD COUNT (AUTO) 6.9 K/uL (4.8-10.8)
[2025-07-10 13:36] LABS: APPEARANCE,URINE CLEAR (CLEAR); GLUCOSE, URINE (UA) NEGATIVE (NEGATIVE); LEUKOCYTE ESTERASE ,URINE NEGATIVE Leu/uL (NEGATIVE); NITRATE,URINE NEGATIVE (NEGATIVE); OCCULT BLOOD,URINE NEGATIVE (NEGATIVE)
[2025-07-10 13:39] LABS: HCG,QUALITATIVE URINE NEGATIVE (NEGATIVE)
[2025-07-10 13:40] LABS: CREATININE 0.9 mg/dL (0.5-1.0); GLOMERULAR FILTR. RATE CALC 81.0 mL/min (>90); GLUCOSE,RANDOM 98.0 mg/dL (70-105); SODIUM SERUM 139.0 mmol/L (136-145); UREA NITROGEN, BLOOD 8.0 mg/dL (7-18)
[2025-07-10 13:40] LABS: ADD UA MICROSCOPIC NO
[2025-07-10] MEDS ORDERED: IBUP-2077 PO (14:38)
--- NOTE | 2025-07-10 15:08 | HMCIMG ---
THORACIC SPINE 2VWS REASON: RIGHT LATERAL THORACIC PAIN ONE WEEK. NON TRAUMA COMPARISON: None. TECHNIQUE: 3 images were obtained. FINDINGS: There are normal appearing vertebral bodies. Interspace heights are well preserved. There are no visible fractures. Soft tissues appear unremarkable. Is mild osteopenia. There are surgical clips in the right upper quadrant from prior cholecystectomy. IMPRESSION: 1. No acute fracture or malalignment 2. Mild osteopenia.
== END 2025-07-10 15:11 | disposition home or self-care (01) ==
LOC: EDH 13:02
DX: S29.012A Strain of muscle and tendon of back wall of thorax, initial encounter (principal); Z79.899 Other long term (current) drug therapy; Z79.1 Long term (current) use of non-steroidal anti-inflammatories (NSAID); Z87.442 Personal history of urinary calculi; X58.XXXA Exposure to other specified factors, initial encounter; Y93.89 Activity, other specified; Y92.89 Other specified places as the place of occurrence of the external cause; Y99.8 Other external cause status
CPT/HCPCS: 36415; 72070; 80048; 81003; 81025; 85025; 99284

== ENCOUNTER 2025-09-15 12:12 | Emergency (ER) | payer MEDICARE, MEDICAID ==
[~2025-09-15] VITALS: Ht 149.9 cm; Wt 61.2 kg
[~2025-09-15 12:12] MED LIST changes: +IBUP-2077 PO
--- NOTE | 2025-09-15 12:23 | ERN ---
ED Note History of Present Illness Stated Complaint: FLANK PAIN Chief Complaint: Flank Pain Time Seen by MD: 12:20 Dictation: PATIENT IS A 44-YEAR-OLD FEMALE COMING IN TO THE EMERGENCY ROOM VIA EMS WITH COMPLAINTS OF INTERMITTENT LEFT UPPER QUADRANT PAIN WITH NAUSEA FOR THE LAST TWO DAYS. NO FEVER NO CHILLS. SHE IS TENDER TO PALPATION. CHEST PAIN NO BACK PAIN NO SOB. PATIENT DOES HAVE A HISTORY OF DOWN SYNDROME. SHE DENIES HISTORY OF PANCREATITIS NO FAMILY AT BEDSIDE WITH IN HER INITIAL INTERVIEW Allergies: Coded Allergies: No Known Drug Allergies (Unverified Allergy, Unknown, 01/26/24) Home Meds Active Scripts Ibuprofen (Ibuprofen 800 mg Tab) 800 Mg Tab, 800 MG PO Q8H PRN for fever or pain, #30 TAB 0 Refills Prov:KALLI WHITING FRUIT SPRAYER 07/10/25 Sucralfate (Carafate) 1 Gram Tablet, 1 GM PO ACHS for 10 Days, #40 TAB Prov:KALLI WHITING FRUIT SPRAYER 06/26/25 Omeprazole (Omeprazole) 40 Mg Capsule.dr, 1 CAP PO DAILY for 30 Days, #30 CAP 0 Refills Prov:KALLI WHITING FRUIT SPRAYER 06/26/25 Ondansetron (Ondansetron Odt) 4 Mg Tab.rapdis, 4 MG PO Q6HPRN PRN for nausea, #15 TAB 0 Refills Prov:ENRRIQUE SOLORZANO FRUIT SPRAYER 06/19/25 Ibuprofen (Ibuprofen) 600 Mg Tablet, 1 TAB PO TID for pain for 10 Days, #30 TAB 0 Refills with food Prov:ENRRIQUE SOLORZANO FRUIT SPRAYER 06/19/25 Tamsulosin HCl (Flomax) 0.4 Mg Cap.er.24h, 0.4 MG PO DAILY, #10 CAPSULE.DR 0 Refills Prov:ENRRIQUE SOLORZANO FRUIT SPRAYER 06/19/25 Ondansetron HCl (Zofran) 4 Mg/2 Ml Inj, 4 MG PO BID for 7 Days, #14 TAB Prov:DUNG NAIDU 01/26/24 Sulfamethoxazole/Trimethoprim (Bactrim Ds Tablet) 800 Mg-160 Mg Tablet, 1 TAB PO BID for 7 Days, #14 TAB 0 Refills Prov:DUNG NAIDU 01/26/24 Past Medical History Past Medical History: Other Additional Past Medical Hx: DOWN SYNDROME Surgical History: Unknown Social History: Negative History: Not Applicable RN Note Reviewed/Agreed w/PFSH: Yes Review of System Dictation CONSTITUTIONAL: NEGATIVE EXCEPT FOR HPI HEAD/FACE: NEGATIVE EXCEPT FOR HPI EENT: NEGATIVE EXCEPT FOR HPI RESPIRATORY: NEGATIVE EXCEPT FOR HPI GASTROINTESTINAL/ABDOMINAL: NEGATIVE EXCEPT FOR HPI EPIGASTRIC AND LEFT UPPER QUADRANT PAIN GENITOURINARY: NEGATIVE EXCEPT FOR HPI MUSCULOSKELETAL: NEGATIVE EXCEPT FOR HPI INTEGUMENTARY: NEGATIVE EXCEPT FOR HPI NEUROLOGICAL/PSYCH: NEGATIVE EXCEPT FOR HPI HEMATOLOGIC/LYMPHATIC: NEGATIVE EXCEPT FOR HPI ALL SYSTEMS NEGATIVE, EXCEPT NOTED ABOVE. 13 POINT REVIEW OF SYSTEMS ASSESSED AND ALL NEGATIVE EXCEPT FOR ABOVE. Initial Vital Sign VS Vital Signs Date Time Temp Pulse Resp B/P (MAP) Pulse Ox O2 Delivery O2 Flow Rate FiO2 09/15/25 12:13 98.8 73 18 122/65 97 Room Air 0 09/15/25 13:25 21 Physical Exam Dictation VITAL SIGNS REVIEWED GENERAL APPEARANCE: ALERT, ORIENTED X 3, MODERATE ACUTE DISTRESS, WELL DEVELOPED, NOURISHED. HEAD AND FACE: NON-TRAUMATIC. EYES: PERRL, PINK CONJUNCTIVAS, EYELID NO TRAUMA, ANTERIOR CHAMBER WITH ARCUS SENILIS. EARS: PINNAS INTACT AND NO SIGNS OF TRAUMA OR ERYTHEMA EAR CANALS CLEAR AND NO DISCHARGE TM NO ERYTHEMA NOSE: NO DISCHARGE, NO BLEEDING. OROPHARYNX: MOUTH NORMAL, TONGUE PINK, PHARYNX CLEAR,NO ERYTHEMA, TONSILS NO EXUDATES, NO ABSCESSES NOTED, MUCOUS MEMBRANE MOIST NECK: SUPPLE, NON-TENDER, NO THYROMEGALY, NO MASSES, NO JVD, NO BRUITS BREAST:DEFERRED CHEST:NO TENDERNESS, NO CREPITUS, NO PARADOXICAL MOVEMENT, NO RETRACTIONS LUNGS:CLEAR, WELL-VENTILATED, SYMMETRIC, NO RALES, NO WHEEZING, NO RHONCHI, NO STRIDOR, GOOD BREATH SOUNDS BILATERALLY HEART: REGULAR RATE, REGULAR RHYTHM, NO MURMUR, NO GALLOPS VASCULAR: NO PERIPHERAL EDEMA, ABDOMEN: SOFT, POSITIVE BOWEL SOUNDS, NONDISTENDED, NO GUARDING, MODERATE LEFT UPPER QUADRANT PAIN WITH PALPATION. IF CVAT BILATERALLY. GENITAL: DEFERRED NEUROLOGICAL: NORMAL SPEECH, MOTOR FUNCTION INTACT, SENSORY FUNCTION INTACT MUSCULOSKELETAL: NECK NONTENDER, FULL RANGE OF MOTION, BACK NONTENDER, FULL RANGE OF MOTION, EXTREMITIES: NONTENDER, FULL RANGE OF MOTION SKIN: COLOR PINK, DRY, NO TURGOR, NO RASH, NO LACERATIONS, NO ABRASIONS, NO CONTUSIONS. LYMPHATIC: DEFERRED Results (Laboratory/Radiology) Laboratory/Radiology Laboratory Tests Test 09/15/25 12:33 White Blood Count 5.7 K/uL (4.8-10.8) Red Blood Count 3.89 MIL/uL (4.00-5.50) L Hemoglobin 13.6 g/dL (12.0-16.0) Hematocrit 40.0 % (36-48) Mean Corpuscular Volume 102.8 fL (79-99) H Mean Corpuscular Hemoglobin 35.0 pg (27.0-33.0) H Mean Corpuscular Hemoglobin Concent 34.0 g/dL (32.0-36.0) Red Cell Distribution Width 13.1 % (11.0-15.5) Platelet Count 160 K/uL (130-400) Mean Platelet Volume 14.0 fL (7.5-10.5) H Immature Granulocyte % (Auto) 0.4 % (0-1) Neutrophils (%) (Auto) 51.7 % (40.0-77.0) Lymphocytes (%) (Auto) 35.4 % (21.0-51.0) Monocytes (%) (Auto) 10.7 % (3.0-13.0) Eosinophils (%) (Auto) 0.9 % (0.0-8.0) Basophils (%) (Auto) 0.9 % (0.0-5.0) Neutrophils # (Auto) 3.0 K/uL (1.8-7.7) Lymphocytes # (Auto) 2.0 K/uL (1.0-4.8) Monocytes # (Auto) 0.6 K/uL (0.1-1.0) Eosinophils # (Auto) 0.05 K/uL (0.00-0.70) Basophils # (Auto) 0.05 K/uL (0.00-0.20) Absolute Immature Granulocyte (auto 0.02 K/uL (0-1) Nucleated Red Blood Cells 0.0 % (0.0-0.19) Sodium Level 140 mmol/L (136-145) Potassium Level 4.0 mmol/L (3.5-5.1) Chloride Level 106 mmol/L (101-111) Carbon Dioxide Level 29 mmol/L (21-32) Blood Urea Nitrogen 9 mg/dL (7-18) Creatinine 0.9 mg/dL (0.5-1.0) Glomerular Filtration Rate Calc 81 mL/min (>90) Random Glucose 98 mg/dL (70-105) Total Calcium 8.1 mg/dL (8.5-10.1) L Lipase 42 U/L (16-77) Serum Test, Qualitative NEGATIVE (NEGATIVE) tion [facility] Other My Comment(s) Study Comments [facility] [address] [place] [address] IMAGING REPORT Signed PATIENT: SANDRA WILLS MR#: [id number] : 1980 SEX: F AGE: 44 LOCATION: [facility] ORDER 1222 STATUS: REG ER REPORT#: [id number] SERVICE 1220 REASON: EPIGASTRIC AND LEFT UPPER QUADRANT PAIN ORDERING PHYSICIAN: KALLI WHITING FRUIT SPRAYER PROCEDURE: ABD PEL W - CT ABDOMEN/PELVIS W/CONTRAST STUDY CT Abdomen and Pelvis with IV contrast HISTORY Epigastric and left upper quadrant abdominal pain. TECHNIQUE Axial contrast-enhanced computed tomography of the abdomen and pelvis with multiplanar reformatted images. COMPARISON CT abdomen and pelvis with contrast dated 09/15/[address] abdomen and pelvis without contrast dated 06/19/2025. FINDINGS LUNG BASES Patchy areas of ground-glass opacity with heterogeneous lung density and mosaic attenuation are present in both lower lobes, suggesting a component of small airways or early interstitial process; no confluent consolidation or pleural effusion is seen. ESOPHAGUS AND STOMACH A small sliding hiatus hernia is present, measuring approximately 2 cm. There is distal thoracic esophageal wall thickening at the gastroesophageal junction, compatible with distal esophagitis in the appropriate clinical context. The remainder of the stomach is unremarkable without focal mass or outlet obstruction. LIVER AND BILIARY TREE The liver is mildly enlarged, measuring approximately 16 cm in craniocaudal dimension, with diffuse decreased attenuation consistent with hepatic steatosis. No focal hepatic lesion is identified. Gallbladder is surgically absent. No intrahepatic or extrahepatic biliary ductal dilatation is seen. SPLEEN Spleen is normal in size and attenuation without focal lesion. PANCREAS Pancreas is normal in size and contour with homogeneous enhancement and no peripancreatic inflammatory change or fluid collection. ADRENAL GLANDS Adrenal glands are normal in size and morphology without focal nodule. KIDNEYS, URETERS AND URINARY BLADDER Both kidneys are normal in size and enhancement without hydronephrosis or hydroureter. No urinary calculi or suspicious renal mass is identified. Urinary bladder demonstrates normal wall thickness and contour without focal lesion. STOMACH AND BOWEL No evidence of mechanical bowel obstruction. There is mild circumferential wall thickening involving the distal transverse colon, splenic flexure and distal descending colon, with maximal mural thickness of approximately 6 mm, associated with pericolonic fat stranding and mild prominence of adjacent mesenteric vasculature, compatible with a mild segmental colitis in the current clinical setting. No pneumatosis, portal venous gas or drainable abscess is identified. Remaining small bowel and proximal colon are unremarkable. APPENDIX Appendix is visualized and appears normal in caliber and wall thickness without periappendiceal fat stranding, consistent with no CT evidence of acute appendicitis. PERITONEUM AND MESENTERY No free intraperitoneal air or ascites. No organized intra-abdominal or pelvic fluid collection. No mesenteric venous thrombosis is identified. LYMPH NODES No pathologically enlarged mesenteric, retroperitoneal or pelvic lymph nodes are seen. REPRODUCTIVE ORGANS Left adnexa contains a multilocular, marginally enhancing cystic lesion measuring approximately 4.7 x 2.9 cm, likely representing an age-appropriate complex or functional adnexal cyst; no solid enhancing mural nodule is identified on this study. Right adnexa is unremarkable. VASCULATURE Abdominal aorta and major visceral branches are normal in caliber without aneurysm. No obvious large-vessel occlusion or enhancing vascular mass is seen on this non-angiographic study. BONES AND SOFT TISSUES Age-appropriate degenerative changes of the thoracolumbar spine are present without acute or aggressive osseous lesion. Superficial soft tissues are unremarkable. IMPRESSION * Mild segmental circumferential wall thickening with pericolonic fat stranding and vascular engorgement involving the distal transverse colon, splenic flexure and distal descending colon, compatible with a mild inflammatory or infectious colitis; no CT evidence of perforation, abscess, toxic megacolon or bowel obstruction. * Mild hepatomegaly with diffuse hepatic steatosis, without focal hepatic lesion. * Small sliding hiatus hernia with distal thoracic esophageal and gastroesophageal junction wall thickening most consistent with distal esophagitis in the appropriate clinical context. * Multilocular left adnexal cyst measuring 4.7 x 2.9 cm, likely age-appropriate; characterization with pelvic ultrasound can be obtained if clinically indicated or if interval change is a concern. * Patchy ground-glass opacities and mosaic attenuation in the lower lobes, suggestive of a small airway or early interstitial process; no consolidation or effusion is present and these findings may be further assessed with dedicated chest CT if clinically warranted. El Labs Reviewed?: Yes ED Course ED Course Orders Procedure Category Date Status Time Cbc With Differential LAB 09/15/25 Complete 12:20 Urinalysis Profile LAB 09/15/25 Logged 12:20 Ct Abdomen/Pelvis CT 09/15/25 Resulted W/Contrast 12:20 0.9%Nacl 1000ml (Ns PHA 09/15/25 Complete 1000ml) 12:30 Ondansetron 4mg Inj PHA 09/15/25 Complete (Zofran 4mg Inj) 12:30 Lipase LAB 09/15/25 Complete 12:20 Basic Metabolic Panel LAB 09/15/25 Complete 12:20 Morphine 4mg Syg PHA 09/15/25 Complete (Morphine 4mg Syg) 12:30 Iohexol (Omnipaque) PHA 09/15/25 Complete 13:26 Testing, LAB 09/15/25 Complete Serum Hcg 14:00 Ketorolac PHA 09/15/25 Complete Tromethamine 30mg/Ml 16:00 Current Medications Medications (Trade) Dose Ordered Sig/Reji Route PRN Reason Start Time Stop Time Status Last Admin Dose Admin Iohexol (Omnipaque) 75 ml STK-MED ONCE IV 09/15/25 13:26 09/15/25 13:26 DC Ketorolac Tromethamine (toRADol) 30 mg ONCE ONCE IVP 09/15/25 16:00 09/15/25 16:01 DC 09/15/25 16:25 Morphine Sulfate (morPHINE 4MG SYG) 2 mg ONCE ONCE IVP 09/15/25 12:30 09/15/25 12:31 DC 09/15/25 14:01 Ondansetron HCl (zoFRAN 4MG INJ) 4 mg ONCE ONCE IVP 09/15/25 12:30 09/15/25 12:31 DC 09/15/25 14:00 Sodium Chloride 1,000 ml @ 0 mls/hr ONCE ONCE IV 09/15/25 12:30 09/15/25 12:31 DC 09/15/25 14:01 Vital Signs Date Time Temp Pulse Resp B/P (MAP) Pulse Ox O2 Delivery O2 Flow Rate FiO2 09/15/25 13:25 98.2 62 18 115/50 100 Room Air* 0 21 09/15/25 12:13 98.8 73 18 122/65 97 Room Air 0 1705/PAIN IS REDUCED AFTER TREATMENT. PATIENT AND HER AUNT ARE AWARE THAT SHE HAS A ACUTE COLITIS NO ELEVATED WHITE COUNT DISCHARGED HOME WITH IBUPROFEN/LEVAQUIN/METRONIDAZOLE TOLD SEE HER PRIMARY CARE DOCTOR Medical Decision Making MDM MDM: DIFFERENTIAL DIAGNOSIS: DIVERTICULITIS/APPENDICITIS/COOL LYSIS/ELECTROLYTE IMBALANCE/DEHYDRATION/UTI/ RATIONALE: TESTS CONSIDERED AND ORDERED SECONDARY TO SHARED DECISION MAKING INCLUDE: LABS/RADIOLOGY PREVIOUS OUTSIDE RECORDS REVIEWED: OLD ER VISITS. RISK OF COMPLICATION AND/OR MORBIDITY OR MORTALITY OF PATIENT MANAGEMENT: NONE MEDICATIONS-PER MEDICATION RECONCILIATION NEED FOR HOSPITALIZATION: PATIENT DOES NOT MEET CRITERIA FOR HOSPITALIZATION. NONE NEED FOR EMERGENCY MAJOR/MINOR SURGERY: NO THERE ARE NO SOCIAL CONCERNS WITH THIS PATIENT. PRESCRIPTION DRUG MANAGEMENT LEVAQUIN/METRONIDAZOLE/MOTRIN PRESCRIPTIONS WILL INCLUDE SYMPTOMATIC CARE PATIENT'S PRIOR EXTERNAL MEDICAL RECORDS FROM OTHER ER VISITS WERE REVIEWED BY ME INDICATED. PRIOR TESTING AND RESULTS FROM PREVIOUS VISITS WERE REVIEWED. PRIOR TESTS WERE TAKEN INTO ACCOUNT WITH MEDICAL DECISION MAKING AND RESOURCE UTILIZATION, INDEPENDENT HISTORIAN/HISTORIANS WERE USED TO OBTAIN COMPLETE MEDICAL HISTORY. I INDEPENDENTLY INTERPRETED THE TEST THAT WERE PERFORMED, RESULTS WERE REVIEWED BY ME AND CONSIDERED FINDINGS ON RADIOLOGY IF ORDERED. MEDICAL MANAGEMENT AND EXAMINATION INTERPRETATION DISCUSSIONS WERE HAD BY ME WITH OTHER QUALIFIED HEALTHCARE PROFESSIONALS INDICATED FOR THE PATIENT'S CARE. DX & DISP Disposition: Discharge Departure Impression: Primary Impression: Acute colitis Additional Impression: Hypocalcemia Condition: Stable Scripts Levofloxacin (Levofloxacin) 500 Mg Tablet 1 TAB PO DAILY for 7 Days, #7 TAB 0 Refills Prov: KALLI WHITING FRUIT SPRAYER 09/15/25 Metronidazole (Metronidazole) 500 Mg Tablet 1 TAB PO TID for 7 Days, #21 TAB 0 Refills Prov: KALLI WHITING FRUIT SPRAYER 09/15/25 Ibuprofen (Ibuprofen 800 mg Tab) 800 Mg Tab 800 MG PO Q8H PRN for fever or pain, #30 TAB 0 Refills Prov: KALLI WHITING FRUIT SPRAYER 09/15/25 Additional Instructions: FOLLOW-UP WITH PRIMARY CARE PROVIDER IN 1 TO 2 DAYS. TAKE MEDICATIONS DIRECTED HERE IN THE EMERGENCY ROOM. OKAY TO CONTINUE HOME MEDICATIONS UNLESS OTHERWISE DISCUSSED DURING YOUR VISIT IN THE EMERGENCY ROOM TODAY. RETURN TO YOUR NEAREST EMERGENCY ROOM IF SYMPTOMS WORSEN OR IF THERE IS NO IMPROVEMENT. CALL 911 IF YOU NEED IMMEDIATE ASSISTANCE. TAKE TYLENOL OR MOTRIN OVER -THE-COUNTER NEEDED AND IF NO CONTRAINDICATIONS ARE PRESENT. INCREASE ORAL HYDRATION. A WOUND CULTURE OR URINE CULTURE WAS ORDERED HERE IN THE EMERGENCY ROOM DEPARTMENT PLEASE FOLLOW-UP WITH PRIMARY CARE PROVIDER AND ADVISE THEM TO GET REPEAT PORTS FROM OUR FACILITY. IF YOU HAD ANY SAVANA WRAP/SPLINTS THAT WERE APPLIED HERE, PLEASE DO NOT REMOVE THEM UNTIL YOU SEE YOUR PRIMARY CARE OR SPECIALTY. TAKE ANTIBIOTICS DIRECTED UNTIL GONE. INCREASE YOUR WATER INTAKE. FOLLOW UP WITH THE YOUR PRIMARY CARE DOCTOR IN THE NEXT 1-2 DAYS. Referrals: SHIKHA GALVAN MD (PCP) Time of Disposition: 17:06 I have reviewed the case, and I agree with, Diagnosis and Plan KALLI WHITING Sep 15, 2025 12:23
--- NOTE | 2025-09-15 12:31 | NUR ---
PER EMS, MOTHER ESTEFANI WAS THE PERSON THAT ACTIVATED 911 CALL.
--- NOTE | 2025-09-15 12:32 | NUR ---
ATTEMPTED TO CALL MOTHER MULTIPLE TIMES, NO ANSWER, UNABLE TO LEAVE VOICEMAIL.
[2025-09-15 12:43] LABS: IMMATURE GRANULOCYTE ABSOLUTE 0.02 K/uL (0-1); NUCLEATED RED BLOOD CELLS 0.0 % (0.0-0.19); PLATELET COUNT (AUTO) 160 K/uL (130-400); RED BLOOD CELL COUNT(AUTO) 3.89 MIL/uL (4.00-5.50); RED CELL DISTRIBUTION WIDTH 13.1 % (11.0-15.5); WHITE BLOOD COUNT (AUTO) 5.7 K/uL (4.8-10.8)
[2025-09-15 12:50] LABS: CREATININE 0.9 mg/dL (0.5-1.0); GLOMERULAR FILTR. RATE CALC 81.0 mL/min (>90); GLUCOSE,RANDOM 98.0 mg/dL (70-105); SODIUM SERUM 140.0 mmol/L (136-145); UREA NITROGEN, BLOOD 9.0 mg/dL (7-18)
[2025-09-15] MEDS ORDERED: IOHEXOL-350 75 ML VIAL IV ONE (13:26)
--- NOTE | 2025-09-15 13:30 | NUR ---
CT ON HOLD, PT PENDING INFORMED CONSENT FORM AND IV SITE AT THIS TIME.
--- NOTE | 2025-09-15 13:54 | NUR ---
MANAGED TO TALK TO PAOLA JOHANN,PT'S SISTER.INFORMED HER THAT PT IS HERE FOR LEFT FLANK PAIN AND THAT SHE HAS NOT GOT ANYONE WITH HER AT THE MOMENT. SHE IS GOING TO CONTACT THEIR FAMILY TO SEE WHO COULD STAY WITH HER.
--- NOTE | 2025-09-15 13:55 | NUR ---
TELEPHONE CONSENT GAINED FROM PAOLA WILLS TO PROCEED WITH THE CT ABDO/PELVIS W CONTRAST.MYSELF AND TASHA Reid RN SIGNED CONSENT.
[2025-09-15] MEDS: 0.9%NACL 1000ML 1,000 ML IV ONE (14:01)
--- NOTE | 2025-09-15 14:30 | NUR ---
PT'S SISTER AND PROVIDER ARRIVED.SISTER STAYING AT BEDSIDE.
--- NOTE | 2025-09-15 15:00 | NUR ---
PT MISSED THE SAMPLE POT FOR URINE.
--- NOTE | 2025-09-15 16:35 | HMCIMG ---
STUDY CT Abdomen and Pelvis with IV contrast HISTORY Epigastric and left upper quadrant abdominal pain. TECHNIQUE Axial contrast-enhanced computed tomography of the abdomen and pelvis with multiplanar reformatted images. COMPARISON CT abdomen and pelvis with contrast dated 09/15/[address] abdomen and pelvis without contrast dated 06/19/2025. FINDINGS LUNG BASES Patchy areas of ground-glass opacity with heterogeneous lung density and mosaic attenuation are present in both lower lobes, suggesting a component of small airways or early interstitial process; no confluent consolidation or pleural effusion is seen. ESOPHAGUS AND STOMACH A small sliding hiatus hernia is present, measuring approximately 2 cm. There is distal thoracic esophageal wall thickening at the gastroesophageal junction, compatible with distal esophagitis in the appropriate clinical context. The remainder of the stomach is unremarkable without focal mass or outlet obstruction. LIVER AND BILIARY TREE The liver is mildly enlarged, measuring approximately 16 cm in craniocaudal dimension, with diffuse decreased attenuation consistent with hepatic steatosis. No focal hepatic lesion is identified. Gallbladder is surgically absent. No intrahepatic or extrahepatic biliary ductal dilatation is seen. SPLEEN Spleen is normal in size and attenuation without focal lesion. PANCREAS Pancreas is normal in size and contour with homogeneous enhancement and no peripancreatic inflammatory change or fluid collection. ADRENAL GLANDS Adrenal glands are normal in size and morphology without focal nodule. KIDNEYS, URETERS AND URINARY BLADDER Both kidneys are normal in size and enhancement without hydronephrosis or hydroureter. No urinary calculi or suspicious renal mass is identified. Urinary bladder demonstrates normal wall thickness and contour without focal lesion. STOMACH AND BOWEL No evidence of mechanical bowel obstruction. There is mild circumferential wall thickening involving the distal transverse colon, splenic flexure and distal descending colon, with maximal mural thickness of approximately 6 mm, associated with pericolonic fat stranding and mild prominence of adjacent mesenteric vasculature, compatible with a mild segmental colitis in the current clinical setting. No pneumatosis, portal venous gas or drainable abscess is identified. Remaining small bowel and proximal colon are unremarkable. APPENDIX Appendix is visualized and appears normal in caliber and wall thickness without periappendiceal fat stranding, consistent with no CT evidence of acute appendicitis. PERITONEUM AND MESENTERY No free intraperitoneal air or ascites. No organized intra-abdominal or pelvic fluid collection. No mesenteric venous thrombosis is identified. LYMPH NODES No pathologically enlarged mesenteric, retroperitoneal or pelvic lymph nodes are seen. REPRODUCTIVE ORGANS Left adnexa contains a multilocular, marginally enhancing cystic lesion measuring approximately 4.7 x 2.9 cm, likely representing an age-appropriate complex or functional adnexal cyst; no solid enhancing mural nodule is identified on this study. Right adnexa is unremarkable. VASCULATURE Abdominal aorta and major visceral branches are normal in caliber without aneurysm. No obvious large-vessel occlusion or enhancing vascular mass is seen on this non-angiographic study. BONES AND SOFT TISSUES Age-appropriate degenerative changes of the thoracolumbar spine are present without acute or aggressive osseous lesion. Superficial soft tissues are unremarkable. IMPRESSION * Mild segmental circumferential wall thickening with pericolonic fat stranding and vascular engorgement involving the distal transverse colon, splenic flexure and distal descending colon, compatible with a mild inflammatory or infectious colitis; no CT evidence of perforation, abscess, toxic megacolon or bowel obstruction. * Mild hepatomegaly with diffuse hepatic steatosis, without focal hepatic lesion. * Small sliding hiatus hernia with distal thoracic esophageal and gastroesophageal junction wall thickening most consistent with distal esophagitis in the appropriate clinical context. * Multilocular left adnexal cyst measuring 4.7 x 2.9 cm, likely age-appropriate; characterization with pelvic ultrasound can be obtained if clinically indicated or if interval change is a concern. * Patchy ground-glass opacities and mosaic attenuation in the lower lobes, suggestive of a small airway or early interstitial process; no consolidation or effusion is present and these findings may be further assessed with dedicated chest CT if clinically warranted. /Mouthcard
[2025-09-15] MEDS ORDERED: METR-172 PO (17:07)
[2025-09-15] MEDS ORDERED: LEVO-70 PO (17:07)
[2025-09-15 17:30] VITALS: BP 115/70; PULSE 69; RESP 18; TEMP 98; O2SAT 98
--- NOTE | 2025-09-15 17:50 | NUR ---
DISCHARGE DOCUMENTS HANDED TO SISTER.INFORMATION GIVEN ABOUT THE BMEDS.AMBULATED TO DISCHARGE WITH A STEADY GAIT.
== END 2025-09-15 17:50 | disposition home or self-care (01) ==
LOC: EDH 12:12
DX: K52.9 Noninfective gastroenteritis and colitis, unspecified (principal); E83.51 Hypocalcemia; R07.89 Other chest pain; Q90.9 Down syndrome, unspecified; Z79.1 Long term (current) use of non-steroidal anti-inflammatories (NSAID); Z79.899 Other long term (current) drug therapy
CPT/HCPCS: 99285; 74177; 96374; 96375; 96361; 80048; 84703; 83690; 85025; 36415; J1885; J7030; J2405; J2270; Q9967